=== PATIENT | male | born 1985 | race African-American/Black ===

== ENCOUNTER 2020-05-02 23:41 | Inpatient (IN) | payer BC ==
--- OUTSIDE RECORDS SUMMARY | 2020-05-02 23:43 | XMS REPORT | Summary of Care ---
:1985 Author Organization [facility] Address [address] [place] [address] Care Team Providers Name Role Phone Pcp, Does Not Have A Primary Care Provider Encounter Details Date Type Department Care Team Description 02/03/2020 Letter (Out) ACCESS [facility]ENTER Karina Lopez RN [address] [place] [phone] [place] [address] Allergies No Known Allergiesdocumented as of this encounter (statuses as of 02/03/2020) Medications Medication Sig Dispensed Refills Start Date End Date Status peg-electrolyte soln Take as directed 4000 mL 0 01/29/2020 Active 236-22.74-6.74 -5.86 before colonoscopy gram solution Hospital, Clinic, or Ordered Dose Route Frequency Start Date End D ate Status Other Facility Administered Medication vedolizumab (ENTYVIO) 300 mg IV Infusion PRN 02/01/2018 Active 300 mg in NaCl 0.9% (NS) 250 mL IV infusion documented as of this encounter (statuses as of 02/03/2020) Active Problems Problem Noted Date Crohn's disease of large intestine without complicatio n 12/23/2019 Overview: Added automatically from request for adriane arguello [id number] Fever of unknown origin 11/22/2017 Post procedure discomfort 10/12/2017 Crohn's disease of both small and large intestine with abscess 10/02/2017 Overview: Added automatically from request for adriane arguello [id number] Obesity (BMI 30-39.9) 11/01/2016 Iron deficiency anemia 05/03/2015 Sepsis 05/02/2015 Gluteal abscess 05/01/2015 Dehydration 02/27/2011 Crohn's disease 01/15/2011 documented as of this encounter (statuses as of 02/03/2020) Resolved Problems Problem Noted Date Resolved Date Regional enteritis of small intestine with large intestine 0 12/28/2010 01/15/2011 documented as of this encounter (statuses as of 02/03/2020) Immunizations Name Administration Dates Next Due HEP B, Adult Dosage 01/18/2018 Hep B, Adol or Pedi Dosage 09/20/2011, 12/05/2010 Influenza Virus Vaccine Quad .5 mL IM 6+ MO 05/13/2019 PPD (TB) 09/13/2011 Pneumococcal 13 Conjugate, PCV13 (Prevnar 13) 03/05/2018 TDAP 05/31/2018 Twinrix (hep a/hep b) 05/31/2018, 12/11/2017 documented as of this encounter Social History Tobacco Use Types Packs/Day Years Used Date Never Smoker Smokeless Tobacco: Never Used Alcohol Use Drinks/Week oz/Week Comments No Sex Assigned at Date Recorded Not on file COVID-19 Exposure Response Date Recorded In the last month, have you been in contact Unable to assess 01/23/2020 10:52 AM CDT with someone who was confirmed or suspected to have Coronavirus / COVID-19? documented as of this encounter Last Filed Vital Signs Not on filedocumented in this encounter Plan of Treatment Date Type Specialty Care Team Description 02/05/2020 Hospital Encounter Surgery Uriah Childress Crohn 's disease of K, DO large intestine [address] without complic ation [id number] [place], [place] [id number] 02/05/2020 Anesthesia Event Surgery Ilias, Nikkie, GASKET FORMER [address] [place] [address] 02/05/2020 Surgery Surgery Uriah Childress COLONOSCOPY K, DO [address] [id number] [place] [address] 03/04/2020 Nurse Visit Infusion Therapy Ismael Childress r K, DO [address] [id number] [place] [address] [phone] 2, [facility]te Adult Infusion Nurse 04/29/2020 Nurse Visit Infusion Therapy Ismael Childress, DO [address] [id number] [place], [place] [phone] 2, [facility] Adult Infusion Nurse Health Maintenance Due Date Last Done Comments VARICELLA VACCINES (1 of 2 - 2-dose childhood series) 1988 PNEUMOCOCCAL 0-64 YEARS COMBINED SERIES (2 of 3 - 04/30/2018 03/05/2018 PPSV23) INFLUENZA VACCINE (#1) 2020 05/13/2019 Depression Screening 05/13/2020 05/13/2019 DTaP,Tdap,and Td Vaccines (2 - Td) 05/31/2028 05/31/2018 documented as of this encounter Results Not on filedocumented in this encounter Insurance Payer Benefit Plan Subscriber ID Effective Dates Phone Address Type / Group [facility] [id number] 2017-Maribel [phone] [address] PPO/POS [place] - OUT OF t 87 [id number] [place] [address] documented as of this encounter Advance Directives Type Date Recorded 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
--- OUTSIDE RECORDS SUMMARY | 2020-05-02 23:44 | XMS REPORT | Summary of Care ---
:1985 Author Organization [facility] Address [address] [place] [address] Care Team Providers Name Role Phone Pcp, Does Not Have A Primary Care Provider Reason for Visit Auth/Cert Status Reason Specialty Diagnoses / Procedures Referred By C ontact Referred To Contact Surgery Diagnoses Crohn's disease of large intestine without complication [K50.10] Vl Preop Procedures AL COLONOSCOPY W/BIOPSY SINGLE/MULTIPLE COLONOSCOPY [address] [facility] [place] [address] Phone: Fax: Encounter Details Date Type Department Care Team Description 02/05/2020 [facility]est[facility] davian Tapia MD [address] [facility] [id number] [place] [address] [id number] Nikkie Mijares CRNA [address] [place] [address] [facility] [place] [phone] Allergies No Known Allergiesdocumented as of this encounter (statuses as of 02/05/2020) Medications Medication Sig Dispensed Refills Start Date End Date Status peg-electrolyte Take as directed 4000 mL 0 01/29/2020 Suspended soln before colonoscopy 236-22.74-6.74 -5.86 gram solution Additional Information documented as of this encounter (statuses as of 02/05/2020) Active Problems Problem Noted Date Crohn's disease of large intestine without complicatio n 12/23/2019 Overview: Added automatically from request for adriane arguello [id number] Fever of unknown origin 11/22/2017 Post procedure discomfort 10/12/2017 Crohn's disease of both small and large intestine with abscess 10/02/2017 Overview: Added automatically from request for adriane arguello [id number] Obesity (BMI 30-39.9) 11/01/2016 Iron deficiency anemia 05/03/2015 Sepsis 05/02/2015 Gluteal abscess 05/01/2015 Dehydration 02/27/2011 Crohn's disease 01/15/2011 documented as of this encounter (statuses as of 02/05/2020) Resolved Problems Problem Noted Date Resolved Date Regional enteritis of small intestine with large intestine 0 12/28/2010 01/15/2011 documented as of this encounter (statuses as of 02/05/2020) Immunizations Name Administration Dates Next Due HEP [...] last month, have you been in contact with No / Unsure 02/03/2020 1:39 PM CDT someone who was confirmed or suspected to have Coronavirus / COVID-19? documented as of this encounter Last Filed Vital Signs Not on filedocumented in this encounter OR Notes Anesthesia Postprocedure Evaluation - Marta Ruiz MD - 02/05/2020 10:30 AM CDT Patient: Jan Amaya Procedure Summary Date: 02/05/20 Room / Location: GI PROCEDURE [address] [place] [address] Anesthesia Start: 921 Anesthesia Stop: 1004 Procedure: COLONOSCOPY (N/A Rectum) Diagnosis: Crohn's disease of large intestine without complication (Crohn's disease of large intestine without complication [K50.10]) Surgeon: Uriah Childress DO Responsible Provider: Marta Ruiz MD Anesthesia Type: TIVA ASA Status: 3 Anesthesia Type: TIVA Last vitals BP 113/62 (02/05/20 1025) Temp 35.8 C (96.4 F) (02/05/20 1005) Pulse 67 (02/05/20 1025) Resp 16 (02/05/20 1025) SpO2 98 % (02/05/20 1025) There were no known complications for this encounter. Anesthesia Post Evaluation Patient location during evaluation: PACU Patient participation: complete - patient participated Level of consciousness: awake and alert Pain management: satisfactory to patient Airway patency: patent Cardiovascular status: acceptable and blood pressure returned to baseline Respiratory status: acceptable Hydration status: acceptable Anesthesia Preprocedure Evaluation - Marta Ruiz MD - 12/25/2019 12:50 PM CDT Name/ MRN / Age / Gender: Jan Amaya, [id number] 34 year old male BMI: Estimated body mass index is 41.36 kg/m as calculated from the following: Height as of this encounter: 1.727 m (5' 8"). Weight as of this encounter: 123.4 kg (272 lb). Allergies: Patient has no known allergies. Last Vitals: BP Readings from Last 1 Encounters: 02/05/20 130/84 Pulse Readings from Last 1 Encounters: 02/05/20 74 SpO2 Readings from Last 1 Encounters: 02/05/20 95% Date of Surgery: 02/05/2020 Surgeon: Uriah Childress DO Procedure: COLONOSCOPY (N/A Rectum) OR Location: [facility] Anesthesia Preop Eval (physical exam) Anesthesia Preop: Chart Review and [id number] NPO Status Verified Clear Liquids: > 2 Hours Solid Food/Non-Clear Liquids: > 8 Hours PONV Risk Factors: non-smoker Anesthesia History Comments: Dislocated jaw with last 2 intubations (+) Hx of anesthetic complications Previous Anesthetics/Airways Additional Comments: TIVA 10/03 Cardiovascular Negative Cardiac ROS METS: 5-6 (-) Hypertension (-) Valvular problems/murmurs (-) Dysrhythmias Pulmonary Negative Pulmonary ROS (-) Asthma (-) Tobacco use (-) Smokeless tobacco use (-) Allergic rhinitis (-) COVID-19 within the past 6 weeks (-) Recent bronchitis or URI Neuro/Musculoskeletal (+) Obesity and morbid obesity GI/Hepatic Comments: Crohn's disease of both small and large intestine with abscess Post procedure discomfort (+) h/o Crohn's disease, IBD, ulcerative colitis, several perianal fistulae (+) Seen 08/20/2017 for gluteal cleft abscess with drainage CC: Crohn's disease (+) Bowel prep (-) GERD Hematology Comments: 10/02/2017 HGB: 11.1 (L) HCT: 35.5 (L) PLT: 455 (H) FERRITIN: 13.7 (L) VIT D 25OH: 19 (L) CRP: 9.3 (H) (+) Anemia and iron deficiency Renal Negative Renal ROS Skin Negative Skin ROS (+) Current IV access and 20g Endo/Other Negative Endo/Other ROS Other (-) Tobacco use (-) Smokeless tobacco use (+) Drug use (smokes marijuana for IBD) 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 Hold on DOS. Anticoagulant Therapy: Defer to surgeons Phentermine: [facility] anesthesiologist MAC Cases: Continue taking ASHLEY inhibitors and ARBs ASA Classification ASA: 3 Current Medications: Current Facility-Administered Medications for the 02/05/20 encounter (Hospital Encounter) Medication Dose Route Frequency Provider Last Rate Last Dose vedolizumab (ENTYVIO) 300 mg in NaCl 0.9% (NS) 250 mL IV infusion 300 mg IV Infusion PRN Uriah Childress DO No outpatient medications have been marked as taking for the 02/05/20 encounter (Hospital Encounter). Previous Surgeries: Past Surgical History: Procedure Laterality Date COLONOSCOPY N/A 10/12/2017 Surgeon: Uriah Childress DO; Location: [facility] Location EXAM UNDER ANESTHESIA 02/28/2011 Surgeon:MOISÉS HILL; Location:[facility] LOC[facility] EXAM UNDER ANESTHESIA 05/05/2011 Surgeon:MOISÉS HILL; Location:[facility] EXAM UNDER ANESTHESIA N/A 06/08/2015 Surgeon: Moisés Hill MD; Location: [facility] LOC[facility] EXAMINATION UNDER ANESTHESIA 12/06/2010 Surgeon:MOISÉS HILL; Location:[facility] LOC[facility] EXAMINATION UNDER ANESTHESIA 02/19/2012 Surgeon: Moisés Hill MD; Location: [facility] LOC[facility] EXAMINATION UNDER ANESTHESIA 11/26/2012 Surgeon: Moisés Hill MD; Location: [facility] LOC[facility] EXAMINATION UNDER ANESTHESIA 04/02/2013 Surgeon: Moisés Hill MD; Location: [facility] LOC[facility] EXAMINATION UNDER ANESTHESIA N/A 06/09/2014 Surgeon: Moisés Hill MD; Location: [facility] LOC[facility] FISTULOTOMY 12/06/2010 Surgeon:MOISÉS HILL; Location:[facility] LOC[facility] FISTULOTOMY 02/19/2012 Surgeon: Moisés Hill MD; Location: [facility] LOCATION FISTULOTOMY 11/26/2012 Surgeon: Moisés Hill MD; Location: [facility] LOCATION FISTULOTOMY 04/02/2013 Surgeon: Moisés Hill MD; Location: [facility] LOC[facility] FISTULOTOMY N/A 06/09/2014 Surgeon: Moisés Hill MD; Location: [facility] LOCATION INCISION AND DRAINAGE OF ABSCESS 12/06/2010 Surgeon:MOISÉS HILL; Location:[facility] LOCATION INCISION AND DRAINAGE OF ABSCESS 05/05/2011 Surgeon:MOISÉS HILL; Location:[facility] LOCATION INCISION AND DRAINAGE OF ABSCESS 02/19/2012 INCISION AND DRAINAGE OF ABSCESS 02/19/2012 Surgeon: Moisés Hill MD; Location: [facility] LOCATION PROCTOSCOPY 12/06/2010 Surgeon:MOISÉS HILL; Location:[facility] LOCATION PROCTOSCOPY 02/28/2011 Surgeon:MOISÉS HILL; Location:[facility] LOCATION PROCTOSCOPY 05/05/2011 Surgeon:MOISÉS HILL; Location:[facility] LOCATION PROCTOSCOPY 02/19/2012 Surgeon: Moisés Hill MD; Location: [facility] LOCATION PROCTOSCOPY 11/26/2012 Surgeon: Moisés Hill MD; Location: [facility] LOCATION PROCTOSCOPY 04/02/2013 Surgeon: Moisés Hill MD; Location: [facility] LOCATION PROCTOSCOPY N/A 06/08/2015 Surgeon: Moisés Hill MD; Location: [facility] LOCATION REPAIR ANAL FISTULA,RECT ADV FLAP at age 8 WOUND DEBRIDEMENT 05/05/2011 Surgeon:MOISÉS HILL; Location:[facility] LOCATION Anesthesia Physical Exam General no apparent distress and alert and oriented x 3 Neuro/Psych neurological Nonfocal Dental no notable dental hx Abdominal GI exam normal (+) obesity, abdomen soft and benign Airway Mallampati score:III TM distance:< 5 cm Neck ROM: full Mouth opening:normal (+) Normal facies Extremity Normal extremity Pulmonary pulmonary exam normal and bilateral clear to auscultation Other Cardiovascular cardiovascular exam normalRhythm:Regular Rate: Normal Anesthesia Plan ASA Status: 3 Plan discussed during pre-op evaluation: TIVA Anesthetic plan on DOS: TIVA Plan to include: IV induction Anesthesia plan discussed with: 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 Post-Operative Analgesia: routine analgesia & antiemetics Recovery Plan: PACU Additional comments: documented in this encounter Miscellaneous Notes Addendum Note - Odessa Merchant CRNA - 02/05/2020 10:43 AM CDT Addendum created 02/05/20 1043 by Odessa Merchant CRNA Flowsheet accepted, Intraprocedure Flowsheets edited documented in this encounter Plan of Treatment Date Type Specialty Care Team Description 02/24/2020 Office Visit Gastroenterology Ismael Childress, DO [address] [place], [place] [address] 03/04/2020 Nurse Visit Infusion Therapy Ismael Childress, DO [address] [id number] [place] [address] [phone] 2Ute Adult Infusion Nurse 04/29/2020 Nurse Visit Infusion Therapy Ismael Childress, DO [address] [id number] [place], [place] [phone] 2, [facility] Adult Infusion Nurse Health Maintenance Due Date Last Done Comments VARICELLA VACCINES (1 of 2 - 2-dose childhood series) 1988 PNEUMOCOCCAL 0-64 YEARS COMBINED SERIES (2 of 3 - 04/30/2018 03/05/2018 PPSV23) INFLUENZA VACCINE (#1) 2020 05/13/2019 Depression Screening 02/04/2021 02/05/2020 DTaP,Tdap,and Td Vaccines (2 - Td) 05/31/2028 05/31/2018 documented as of this encounter Results Not on filedocumented in this encounter Administered Medications Medication Order MAR Action Action Date Dose Rate Site lactated ringers IV infusion New Bag 02/05/2020 9:01 AM CDT IV Infusion, CONTINUOUS PRN, Starting Elsa 02/05/20 at 0901, Until Elsa 02/05/20 at 1005, Routine, Intra-op midazolam (VERSED) injection Given 02/05/2020 9:09 AM CDT 2 mg ONCE INTRA PROCEDURE, Starting Elsa 02/05/20 at 0909, Until Elsa 02/05/20 at 1005, Routine, Intra-op propofoL IV infusion Rate Change 02/05/2020 9:43 125 mcg/kg/min 75 mL/hr CONTINUOUS PRN, Starting Elsa AM CDT 02/05/20 at 0926, Until Elsa 02/05/20 at 1005, Routine, Intra-op Rate Change 02/05/2020 9:34 AM CDT 150 mcg/kg/min 90 mL/hr New Bag 02/05/2020 9:26 AM CDT 200 mcg/kg/min 120 mL/hr propofoL IV infusion Given 02/05/2020 9:28 AM CDT 50 mg ONCE INTRA PROCEDURE, Starting Elsa 02/05/20 at 0926, Until Elsa 02/05/20 at 1005, Routine, Intra-op Given 02/05/2020 9:26 AM CDT 50 mg documented in this encounter Insurance Payer Benefit Plan Subscriber ID Effective Dates Phone Address Type / Group [id number] 2017-Maribel [phone] [address] PPO/POS [place] - OUT OF t 87 [id number] [place] [address] documented as of this encounter Advance Directives Type Date Recorded 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
--- OUTSIDE RECORDS SUMMARY | 2020-05-02 23:44 | XMS REPORT | Summary of Care ---
:1985 Author Organization [facility] Address [address] [place] [address] Care Team Providers Name Role Phone Pcp, Does Not Have A Primary Care Provider Reason for Referral (Routine) Status Reason Specialty Diagnoses / Referred By Referred To Procedures Contact Contact New Request Infusion Therapy Diagnoses Crohn's disease of large intestine without complication [place], Procedures CONSULT/REFERRAL AMB INFUSION THERAPY Preferred location: [facility] Uriah Rooney DO [address] [place] [address] [id number] [place] [address] Reason for Visit Reason Comments Orders Encounter Details Date Type Department Care Team Description 02/16/2020 Telephone [facility] GASTR[facility] Uriah Diaz DO Orders -[address] [id number] [address] [place] [address] [place], [place] [address] Allergies No Known Allergiesdocumented as of this encounter (statuses as of 02/16/2020) Medications Medication Sig Dispensed Refills Start Date [...] as of this encounter (statuses as of 02/16/2020) Active Problems Problem Noted Date Crohn's disease of large intestine without complicatio n 12/23/2019 Overview: Added automatically from request for adriane arguello [id number] Fever of unknown origin 11/22/2017 Post procedure discomfort 10/12/2017 Crohn's disease of both small and large intestine with abscess 10/02/2017 Overview: Added automatically from request for adriane arguello [id number] Obesity (BMI 30-39.9) 11/01/2016 Iron deficiency anemia 05/03/2015 Sepsis 05/02/2015 Gluteal abscess 05/01/2015 Dehydration 02/27/2011 Crohn's disease 01/15/2011 documented as of this encounter (statuses as of 02/16/2020) Resolved Problems Problem Noted Date Resolved Date Regional enteritis of small intestine with large intestine 0 12/28/2010 01/15/2011 documented as of this encounter (statuses as of 02/16/2020) Immunizations Name Administration Dates Next Due HEP [...] Signs Not on filedocumented in this encounter Miscellaneous Notes Telephone Encounter - Milady Romero LVN - 02/16/2020 2:46 PM CDTAssessment and Plan: 11/11/2019 1. Crohn's colitis, with fistula (primary encounter diagnosis) 2. Immunosupression 3. NICOLE - He has h/o Crohn's disease with perianal disease dxd 2008 on colonoscopy. He has lost response to Remicade, Humira, and Cimzia. He was recently hospitalized for serum sickness like reaction after given a dose of Remicade. He is doing well on Entyvio - Continue Entyvio q 8 weeks - Check CBC, CMP at infusion in 2 days - Schedule colonoscopy, Tier 3, with Golytely as prep. Will call patient to schedule and have nurse place case request. Will need to complete consent day of procedure. documented in this encounter Plan of Treatment Date Type Specialty Care Team Description 02/24/2020 Office Visit Gastroenterology Ismael Childress, DO [address] [place], [place] [address] [phone] 03/04/2020 Nurse Visit Infusion Therapy Ismael Childress DO [address] [id number] [place], [place] [phone] 2Ute Adult Infusion Nurse 04/29/2020 Nurse Visit Infusion Therapy Ismael Childress, DO [address] [id number] [place], [place] [phone] 2, [facility] Adult Infusion Nurse Health Maintenance Due Date Last Done Comments VARICELLA VACCINES (1 of 2 - 2-dose childhood series) 1988 PNEUMOCOCCAL 0-64 YEARS COMBINED SERIES (2 of 3 - 04/30/2018 03/05/2018 PPSV23) INFLUENZA VACCINE (#1) 2020 05/13/2019 Depression Screening 02/04/2021 02/05/2020 DTaP,Tdap,and Td Vaccines (2 - Td) 05/31/2028 05/31/2018 documented as of this encounter Results Not on filedocumented in this encounter Visit Diagnoses Diagnosis Crohn's disease of large intestine witho ut complication - Primary Regional enteritis of large intestine documented in this encounter Insurance Payer Benefit Plan Subscriber ID Effective Dates Phone Address Type / Group [facility] [id number] 2017-Maribel [phone] [address] PPO/POS [place] - OUT OF t 87 [id number] [place] [address] documented as of this encounter Advance Directives Type Date Recorded 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
--- OUTSIDE RECORDS SUMMARY | 2020-05-02 23:44 | XMS REPORT | Summary of Care ---
:1985 Author Organization [facility] Address [address] [place] [address] Care Team Providers Name Role Phone Pcp, Does Not Have A Primary Care Provider Reason for Visit Auth/Cert Status Reason Specialty Diagnoses / Procedures Referred By C ontact Referred To Contact Surgery Diagnoses Crohn's disease of large intestine without complication [K50.10] Vl Preop Procedures [place] COLONOSCOPY W/BIOPSY SINGLE/MULTIPLE COLONOSCOPY [address] [facility] [place] [address] Phone: Fax: Encounter Details Date Type Department Care Team Description 02/05/2020 Hospital Encounter [facility] Uriah Childress Crohn's disease of [facility] Post K, DO large intestine Anesthesia Care [address] [place] [address] without comp lication Unit [id number] [id number] [place], [place] [phone] Allergies No Known Allergiesdocumented as of this encounter (statuses as of 02/05/2020) Medications No known medicationsdocumented as of this encounter (statuses as of 02/05/2020) Active Problems Problem Noted Date Crohn's disease of large intestine without complicatio n 12/23/2019 Overview: Added automatically from request for adriane arguello [id number] Fever of unknown origin 11/22/2017 Post procedure discomfort 10/12/2017 Crohn's disease of both small and large intestine with abscess 10/02/2017 Overview: Added automatically from request for adriane arguello [id number] Obesity (BMI 30-39.9) 11/01/2016 Iron deficiency anemia [...] of this encounter Last Filed Vital Signs Vital Sign Reading Time Taken Comments Blood Pressure 121/82 02/05/2020 10:30 AM CDT Pulse 67 02/05/2020 10:30 AM CDT Temperature 35.8 C (96.4 F) 02/05/2020 10:05 AM CDT Respiratory Rate 16 02/05/2020 10:30 AM CDT Oxygen Saturation 98% 02/05/2020 10:30 AM CDT Inhaled Oxygen Concentration - - Weight 123.4 kg (272 lb) 02/05/2020 8:23 AM CDT Height 172.7 cm (5' 8") 02/05/2020 8:23 AM CDT Body Mass Index 41.36 02/05/2020 8:23 AM CDT documented in this encounter Discharge Instructions Susanna Abbasi RN - 02/05/2020 General Discharge Instructions Procedure: Colonoscopy The medication you were given for the procedure may make you dizzy or sleepy. Do not drive, operate machinery or walk for long distances in the heat for at least 12 hours. Many patients feel very tired following these procedures and need to rest for several hours. The procedure may cause mild discomfort in the abdominal area, but the pain should disappear within several hours. Notify your physician if you have pain or tenderness for more than six hours or ifyou notice an increase in abdominal size. Advance your diet: You may resume a normal diet but first start with a light meal that is not greasy or fatty. If you are passing gas and this light meal does not bother your stomach you may continue with a normal diet for the next meal. Resume your home medications. The arm vein where medication was given may be tender. Apply a warm compress. If the pain persists for more than 12 hours, call your doctor. You will probably belch or pass gas during the first few hours after the exam. Light exercise like walking may help relieve bloating or gas pains. Avoid extreme heat when you exercise. If you had a polypectomy or a biopsy, you may notice a small amount of red blood coming from the rectum. You may also have a small amount of blood in your first bowel movement. If bleeding increases, call your doctor. If you had a polypectomy, do not take non-steroidal antiinflammatory medications containing Ibuprofen (such as Nuprin, Motrin, Advil) or medications with Aspirin (such as Bufferin) for 7 days, unless your doctor tells you otherwise. For minor pains, you may use medications that do not contain aspirin or ibuprofen (such as Tylenol or Datril). If you experience: Severe abdominal pain, excessive rectal bleeding, increase in abdominal size, persistent nausea or vomiting or a general tired feeling that does not improve please call Dr. Thomas [phone] Special Instructions: Although these symptoms may not be related to your procedure, call your doctor immediately if you- Become short of breath Get dizzy Have a fever Experience chest pain Have rapid or irregular heart rate If you had biopsies your physician will call you with the results in approximately one week and advise you of when to follow-up. Contact Information Gastroenterology Department [phone] After Hours (Non-Urgent Concerns): [facility] Access Line [phone] and ask to speak to the physician covering High Fiber Diet (25-30 grams/ day) FRUIT AMOUNT FIBER (gms) VEGETABLES AMOUNT FIBER (gms) Apple with skin 1 medium 5.00 Avocado 1 medium 11.84 Apricot 3 medium 0.98 Beets, cooked 1 cup 2.85 Apricots, dried 5 pieces 2.89 Beet greens 1 cup 4.20 Banana 1 medium 3.92 Bok Roly, cooked 1 cup 2.76 Blueberries 1 cup 4.18 Broccoli, cooked 1 cup 4.5 Cantaloupe, cubes 1 cup 1.28 Brussel Sprouts 1 cup 2.84 Figs, dried 2 medium 3.74 Cabbage, cooked 1 cup 4.20 Grapefruit medium 6.12 Carrot 1 medium 2.00 [place], navel 1 medium 3.40 Carrots, cooked 1 cup 5.22 Isabella 1 medium 2.00 Cauliflower, cooked 1 cup 3.43 Peaches, dried 3 pieces 3.18 Matheus Slaw 1 cup 4.00 Pear 1 medium 5.08 [place], sweet 1 cup 4.66 [place] 1 medium 1.00 Green beans 1cup 3.95 Raisins 1.5 oz box 1.60 Celery 1 stalk 1.02 Raspberries 1 cup 8.34 Kale, cooked 1 cup 7.20 Strawberries 1 cup 3.98 Onions, raw 1 cup 2.88 Peas, cooked 1 cup 8.84 CEREAL, GRAINS, PASTA AMOUNT FIBER (gms) Peppers, cooked 1 cup 2.62 Bran Cereal 1 cup 19.94 Pop corn, air popped 3 cups 3.60 Bread, whole wheat 1 slice 2.00 Potato, baked w/ skin 1 medium 4.80 Oats, rolled dry 1 cup 12.00 Spinach, cooked 1 cup 4.32 Pasta, whole wheat 1 cup 6.34 Summer squash 1 cup 2.52 Rice, dry brown 1 cup 7.98 Sweet Potato, cooked 1 cup 5.94 [place] Chard, cooked 1 cup 3.68 BEANS, NUTS, SEEDS AMOUNT FIBER (gms) Tomato 1 medium 1.00 Almonds 1 oz 4.22 Winter Squash 1 cup 5.74 Black Beans, cooked 1 cup 14.92 Zucchini, cooked 1 cup 2.63 Cashews 1 oz 1.00 Flax Seeds 3 tbs 6.97 Garbanzo beans, cooked 1 cup 5.80 Kidney beans, cooked 1 cup 13.33 Lentils, red cooked 1 cup 15.64 Nolan beans, cooked 1 cup 13.16 Peanuts 1 oz 2.30 Pistachio nuts 1 oz 3.10 Pumpkin seeds cup 4.12 Soybeans, cooked 1 cup 7.62 Sharp seeds cup 3.00 Walnuts 1 oz 3.08 TOBACCO AVOIDANCE Exposure to tobacco either from smoking or from second hand (environmental)smoke or smokeless tobacco (snuff) is damaging to your health. This information is to encourage everyone to avoid tobacco exposure. It is recommended that you: If you smoke or use smokeless tobacco, we encourage you to quit. If you have already quit smoking, continue your good work! If you do not smoke or use smokeless tobacco, do not start. Avoid secondhand smoke. Additional Resources: You may want to contact these organizations for further information on smoking and how to quit- [place] Lung Association - http://www.lungusa.org/stop-smoking/ [place] Cancer Society - http://www.cancer.org/Healthy/StayAwayfromTobacco/index Citizen [place] Heart Association - http://www.heart.org/HEARTORG/GettingHealthy/QuitSmoking/Quit-Smoking _[facility]_001085_SubHomePage.jsp documented in this encounter H&P Notes Uriah Childress DO - 02/05/2020 9:07 AM CDT Endoscopy H & P Age: [age] year old Sex: male ASA Class: II Indication: crohn's disease Past Medical History: Diagnosis Date Anemia Crohn's disease Family history of Colon Cancer/Polyps: no Current Facility-Administered Medications Medication Dose Route Frequency Last Rate Last Dose simethicone (GAS RELIEF (SIMETHICONE)) 40 mg/0.6 mL drops PRN 80 mg at 02/05/20 0829 No Known Allergies Social History Socioeconomic History Marital status: Spouse name: Not on file Number of children: Not on file Years of education: Not on file Highest education level: Not on file Occupational History 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 Social Needs Financial resource strain: Not on file Food insecurity Worry: Not on file Inability: Not on file Transportation needs Medical: Not on file Non-medical: Not on file Tobacco Use Smoking status: Never Smoker Smokeless tobacco: Never Used Substance and Sexual Activity Alcohol use: No Drug use: No Sexual activity: Not on file Lifestyle Physical activity Days per week: Not on file Minutes per session: Not on file Stress: Not on file Relationships Social connections Talks on phone: Not on file Gets together: Not on file Attends mosque service: Not on file Active member of club or organization: Not on file Attends meetings of clubs or organizations: Not on file Relationship status: Not on file Intimate partner violence Fear of current or ex partner: Not on file Emotionally abused: Not on file Physically abused: Not on file Forced sexual activity: Not on file Other Topics Concern Not on file Social History Narrative Not on file Mental Status: alert, oriented x3 Chest: clear to auscultation Cardiovascular: regular rate and rythmn Abdomen: bowel sounds present Spleen Tip: non-palpable Hepatomegaly: no Mass: not present Tenderness: no Impression and Plan: Crohn's disease- need to assess activity colonoscopy Education provided to the patient and family about the procedure. COMPLICATIONS/SECONDARY DIAGNOSIS None documented in this encounter Miscellaneous Notes Nursing Note - Candie Alva RN - 02/03/2020 1:39 PM CDTColonoscopy w/Anesthesia scheduled at [facility] Endoscopy on 02/05/[address] Childress. Patient has instructions and Golytely. Call back phone number provided to patient. Patient verbalized understanding ofinstructions. Discussed with patient they will need a responsible adult to provide transportation on day of procedure. Patient also informed that they will be contacted day before their procedure with arrival time. documented in this encounter Plan of Treatment Date Type Specialty Care Team Description 02/24/2020 Office Visit Gastroenterology Ismael Childress DO [address] [place], [place] [address] [phone] 03/04/2020 Nurse Visit Infusion Therapy Ismael Childress, DO [address] [facility] [id number] [place] [address] [phone] 2, [facility] Adult Infusion Nurse 04/29/2020 Nurse Visit Infusion Therapy Ismael Childress, DO [id number] [place], [place] [id number] 2, [place] Adult Infusion Nurse Name Type Priority Associated Diagnoses Date/Ti me SURGICAL PATHOLOGY EXAM LAB STAT 01/17 9:39 AM CDT Name Type Priority Associated Diagnoses Order S chedule POCT Test LAB Routine ONCE for 1 Occurrences starting 2019 until 02/05/2020 SURGICAL PATHOLOGY EXAM LAB Routine Rele ase Upon Ordering for 1 Occurrences s tarting 02/05/2020 Health Maintenance Due Date Last Done Comments [...] of large intestine documented in this encounter Administered Medications Medication Order MAR Action Action Date Dose Rate Site simethicone (GAS RELIEF Given 02/05/2020 8:29 AM CDT 80 mg (SIMETHICONE)) 40 mg/0.6 mL drops PRN, Starting Elsa 02/05/20 at 0829, Until Discontinued, Routine, Intra-op Medication Order MAR Action Action Date Dose Rate Site lactated ringers IV infusion New Bag 02/05/2020 8:20 AM CDT 1,000 mL 20 mL/hr 1,000 mL at 20 mL/hr, 1,000 mL, IV Infusion, ONCE, 1 dose, Elsa 02/05/20 at 0830, Routine, DSU Pre-op documented in this encounter Insurance Payer Benefit Plan Subscriber ID Effective Dates Phone Address Type / Group [id number] 2017-Maribel [phone] [address] PPO/POS [place] - OUT OF t 87 [id number] [place] [address] documented as of this encounter Advance Directives Type Date Recorded 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
--- OUTSIDE RECORDS SUMMARY | 2020-05-02 23:44 | XMS REPORT | Summary of Care ---
:1985 Author Organization [facility] - Health Address [address] [place] [address] Care Team Providers Name Role Phone Pcp, Does Not Have A Primary Care Provider Encounter Details Date Type Department Care Team Description 02/05/2020 Orders Only [facility] Doctor Unassigned, No [address] [facility] [place] [address] [address] [place] [address] Allergies No Known Allergiesdocumented as of this [...] Added automatically from request for adriane arguello [id number] Fever of unknown origin 11/22/2017 Post procedure discomfort 10/12/2017 Crohn's disease of both small and large intestine with abscess 10/02/2017 Overview: Added automatically from request for adriane arguello [id number] Obesity (BMI 30-39.9) 11/01/2016 Iron deficiency anemia [...] Treatment Date Type Specialty Care Team Description 03/04/2020 Nurse Visit Infusion Therapy Ismael Childress, DO [id number] [place], [place] [address] [facility] Adult Infusion Nurse 04/29/2020 Nurse Visit Infusion Therapy Ismael Childress, DO [id number] [place], [place] [address] 2[facility] Adult Infusion Nurse Health Maintenance Due Date Last Done Comments VARICELLA VACCINES (1 of 2 - 2-dose childhood series) 1988 PNEUMOCOCCAL 0-64 YEARS COMBINED SERIES (2 of 3 - 04/30/2018 03/05/2018 PPSV23) INFLUENZA VACCINE (#1) 2020 05/13/2019 Depression Screening 05/13/2020 05/13/2019 DTaP,Tdap,and Td Vaccines (2 - Td) 05/31/2028 05/31/2018 documented as of this encounter Procedures Procedure Name Priority Date/Time Associated Diagnosis Comme nts ASSIGNMENT OF BENEFITS Routine 02/05/2020 7:53 AM CDT documented in this encounter Results Not on filedocumented in this encounter Insurance Payer Benefit Plan Subscriber ID Effective Dates Phone Address Type / Group [facility] [id number] 2017-Maribel [phone] [address] PPO/POS [place] - OUT OF t 87 [id number] [place] [address] documented as of this encounter Advance Directives Type Date Recorded 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
--- OUTSIDE RECORDS SUMMARY | 2020-05-02 23:44 | XMS REPORT | Summary of Care ---
:1985 Author Organization [facility] Address [address] [place] [address] Care Team Providers Name Role Phone Pcp, Does Not Have A Primary Care Provider Reason for Visit Reason Comments LAB WORK Encounter Details Date Type Department Care Team Description 02/24/2020 Shoe Salesperson Visit [facility] Ricardo Childress, DO [address] [facility] [id number] [place], [place] [address] Crohn's disease of PHLEBOTOMY/LAB Vls-Lab large intestine [address] [facility] without co mplication [facility] [address] [place] [phone] Allergies No Known Allergiesdocumented as of this encounter (statuses as of 02/24/2020) Medications Hospital, Clinic, or Ordered Dose Route Frequency Start Date End D ate Status Other Facility Administered Medication vedolizumab (ENTYVIO) 300 mg IV Infusion PRN 02/01/2018 Active 300 mg in NaCl 0.9% (NS) 250 mL IV infusion documented as of this encounter (statuses as of 02/24/2020) Active Problems Problem Noted Date Crohn's disease of large intestine without complicatio n 12/23/2019 Overview: Added automatically from request for adriane arguello [id number] Fever of unknown origin 11/22/2017 Post procedure discomfort 10/12/2017 Crohn's disease of both small and large intestine with abscess 10/02/2017 Overview: Added automatically from request for adriane arguello [id number] Obesity (BMI 30-39.9) 11/01/2016 Iron deficiency anemia 05/03/2015 Sepsis 05/02/2015 Gluteal abscess 05/01/2015 Dehydration 02/27/2011 Crohn's disease 01/15/2011 documented as of this encounter (statuses as of 02/24/2020) Resolved Problems Problem Noted Date Resolved Date Regional enteritis of small intestine with large intestine 0 12/28/2010 01/15/2011 documented as of this encounter (statuses as of 02/24/2020) Immunizations Name Administration Dates Next Due HEP [...] been in contact with No / Unsure 02/24/2020 1:15 PM CDT someone who was confirmed or suspected to have Coronavirus / COVID-19? documented as of this encounter Last Filed Vital Signs Not on filedocumented in this encounter Nursing Notes Kaylen Early - 02/24/2020 3:00 PM CDT Venipuncture collection performed by clean technique on the left hand. Total of 1 attempts were made. Slight pressure and a bandage/dressing were applied to the site(s). The patient experienced no complications. The following specimens were processed according to instructions and sent to [facility] laboratories per lab order on 02/24/2020: LT BLUE SST 1 RED LAV 1 PPT DK GREEN (LiHep) DK GREEN (SodH) [place] DK BLUE (K2) DK BLUE (S) ACD Blood Culture NIPT/NTD documented in this encounter Plan of Treatment Date Type Specialty Care Team Description 03/04/2020 Nurse Visit Infusion Therapy [place], Gurinde r K, DO [id number] [place], [place] [address] 2[place] Adult Infusion Nurse 04/29/2020 Nurse Visit Infusion Therapy Ismael Childress, DO [id number] [place], [place] [phone] 2[place] Adult Infusion Nurse 08/24/2020 Office Visit Gastroenterology Ismael Childress, DO [address] [place], [place] [address] Health Maintenance Due Date Last Done Comments [...] disease of large intestine witho ut complication Regional enteritis of large intestine documented in this encounter Insurance Payer Benefit Plan Subscriber ID Effective Dates Phone Address Type / Group [facility] [id number] 2017-Maribel [phone] [address] PPO/POS [place] - OUT OF t 87 [id number] [place] [address] documented as of this encounter Advance Directives Type Date Recorded Patient Floor Inspector Explanati on Advance Directives and Living 12/02/2012 3:24 PM Will Power of Campus Recruiting Internship 12/02/2012 3:24 PM
--- OUTSIDE RECORDS SUMMARY | 2020-05-02 23:45 | XMS REPORT | Summary of Care ---
:1985 Author Organization [facility] Address [address] [place] [address] Care Team Providers Name Role Phone Pcp, Does Not Have A Primary Care Provider Reason for Visit Reason Comments Follow-up 2 wk post op Encounter Details Date Type Department Care Team Description 02/24/2020 Office Visit [facility] Uriah Childress Crohn's dis ease of large intestine without complication (Primary Dx); GASTROENTEROLOGY -[facility] K, DO Immunosuppression; [address] Iron deficiency anemia, unsp ecified iron deficiency anemia type [address] [facility] [address] [place] [address] [phone] Allergies No Known Allergiesdocumented as of this encounter (statuses as of 03/22/2020) Medications Medication Sig Dispensed Refills Start Date End Date Status peg-electrolyte Take as directed 4000 mL 0 01/29/20202019 Discontinued soln before [id number] colonoscopy -5.86 gram solution Hospital, Clinic, or Ordered Dose Route Frequency Start Date End D ate Status Other Facility Administered Medication vedolizumab (ENTYVIO) 300 mg IV Infusion PRN 02/01/2018 Active 300 mg in NaCl 0.9% (NS) 250 mL IV infusion documented as of this encounter (statuses as of 03/22/2020) Active Problems Problem Noted Date Crohn's disease of large intestine without complicatio n 12/23/2019 Overview: Added automatically from request for adriane arguello [id number] Fever of unknown origin 11/22/2017 Post procedure discomfort 10/12/2017 Crohn's disease of both small and large intestine with abscess 10/02/2017 Overview: Added automatically from request for adriane arguello [id number] Obesity (BMI 30-39.9) 11/01/2016 Iron deficiency anemia 05/03/2015 Sepsis 05/02/2015 Gluteal abscess 05/01/2015 Dehydration 02/27/2011 Crohn's disease 01/15/2011 documented as of this encounter (statuses as of 03/22/2020) Resolved Problems Problem Noted Date Resolved Date Regional enteritis of small intestine with large intestine 0 12/28/2010 01/15/2011 documented as of this encounter (statuses as of 03/22/2020) Immunizations Name Administration Dates Next Due HEP [...] been in contact with No / Unsure 03/04/2020 1:56 PM CDT someone who was confirmed or suspected to have Coronavirus / COVID-19? documented as of this encounter Last Filed Vital Signs Vital Sign Reading Time Taken Comments Blood Pressure 116/86 02/24/2020 1:18 PM CDT Pulse 76 02/24/2020 1:18 PM CDT Temperature 36.2 C (97.2 F) 02/24/2020 1:18 PM CDT Respiratory Rate - - Oxygen Saturation 99% 02/24/2020 1:18 PM CDT Inhaled Oxygen Concentration - - Weight 128.8 kg (284 lb) 02/24/2020 1:18 PM CDT Height 172.7 cm (5' 8") 02/24/2020 1:18 PM CDT Body Mass Index 43.18 02/24/2020 1:18 PM CDT documented in this encounter Progress Notes Elizabeth Arriaza PA - 02/24/2020 1:30 PM CDT GI Clinic Note Date: 02/24/2020 13:59 Chief Complaint: Crohn's disease F/U History of Present Illness: Jan Amaya is a 32 year old male with PHx of Crohn's disease dxd in 2008 on colonoscopy presents in the clinic for Crohn's disease F/U. Initially, he was treated with prednisone followed by Asacol for 1 year. In about 2009, he was told to have perianal disease with fistula, placed on flagyl and levaquin, symptoms improved. He was given iron infusions in 2010. He was started on Remicade standard dose in 2010 but had infusion reactions subsequently and also drug was not working later on.He then switched to Humira- because there was inadequate response close to time of infusion along with 6MP, took that till 2013. He was then switched to Cimzia in about 2013, took it intermittently forabout a year, then stopped because it wasn't working- self decision. He stopped 6MP for unknown reason. He has had multiple setons placed, I&D done for his perianal fistulas. He also had a fistulotomy done once. He was off all treatments for CD since 2013 and was using cannabis for abd pains and to keep up his appetite.He received first dose of Remicade 11/08/17 and 7- 10 days later had severe flu like illness and was admitted to [facility] 11/22/17. Stool studies showed elevated calprotectin but no evidence of infection. He was recommended to start Entyvio last visit 12/11/17 but order was not placed until 01/23/18. He has been on Entyvio since 01/2018 and is doing well. He feels a bit fatigued a week prior to his infusion. BMs 2-4x/day, formed, no blood. He denies abdominal pain. He has gained 13 lbs since last visit. He has also received iron infusion and tolerated well. Follow-Up 02/24/2020: Recent colonoscopy 02/05/2020 showed active Crohn's disease in colon except for rectum. He reports doing well on Entyvio q 8 weeks. Offered to do PPSV23 but patient defers because does not want himto. Past Medical History: Past Medical History: Diagnosis Date Anemia Crohn's disease Past Surgical History: He has a past surgical history that includes repair anal fistula,rect adv flap; incision and drainage of abscess (12/06/2010); fistulotomy (12/06/2010); proctoscopy (12/06/2010); examination under anesthesia (12/06/2010); exam under anesthesia (02/28/2011); proctoscopy (02/28/2011);incision and drainage of abscess (05/05/2011); exam under anesthesia (05/05/2011); proctoscopy (05/05/2011); wound debridement (05/05/2011); incision and drainage of abscess (02/19/2012); examination under anesthesia (02/19/2012); incision and drainage of abscess (02/19/2012); proctoscopy (02/19/2012); fistulotomy (02/19/2012); examination under anesthesia (11/26/2012); proctoscopy (11/26/2012); fistulotomy (11/26/2012); examination under anesthesia (04/02/2013); proctoscopy (04/02/2013); fistulotomy (04/02/2013); examination under anesthesia (N/A, 06/09/2014); fistulotomy (N/A, 06/09/2014); exam under anesthesia (N/A, 06/08/2015); proctoscopy (N/A, 06/08/2015); colonoscopy (N/A, 10/12/2017); and colonoscopy (N/A, 02/05/2020). Social History: His reports that he has never smoked. He has never used smokeless tobacco. He reports that he does not drink alcohol or use drugs., , Family History: He family history includes Coronary Heart Disease in his paternal grandfather; GI inhis paternal uncle and another family member. Allergies: has No Known Allergies. Medications: Scheduled Medications: No current outpatient medications on file. Current Facility-Administered Medications Medication Dose Route Frequency Last Rate Last Dose vedolizumab (ENTYVIO) 300 mg in NaCl 0.9% (NS) 250 mL IV infusion 300 mg IV Infusion PRN Review of Systems: General: No recent fever or chills, no recent weight loss nor weight gain HEENT: No visual disturbances, hearing loss, tinnitus, nor vertigo CVS: No chest pain, palpitations, orthopnea, nor PND Resp: No dyspnea, asthma, chronic cough, nor hemoptysis GI: SEE HPI : No dysuria, hematuria, nor nocturia Musculoskeletal: No joint swelling, joint pain, cramping nor weakness Derm: No rash, suspicious skin lesions, skin cancer nor skin ulcers Neuro: No seizures, nor stroke Endo: No diabetes nor thyroid disease Heme: No abnormal bruising or bleeding Allergy: No urticaria, allergic rash, nor recurrent infections Psych: No depression, anxiety, nor mood swings Physical Exam: Temp: [36.2 C (97.2 F)] Pulse: [76] BP: (116)/(86) @LASTSAO2(3)@ General: Alert, awake, calm, in no acute respiratory distress Skin: no vascular spiders, no jaundice, no vitiligo, no rash, no excoriations Head: normocephalic, atraumatic, no wasting of temporalis or masseter musculature Mouth/Throat: no bleeding from mucous membranes Neck: supple, midline trachea, no thyromegaly Lymph Nodes: no palpable cervical, supraclavicular, axillary, or inguinal lymphadenopathy Chest: no spinal or renal angle tenderness, no chest wall abnormality, no kyphosis or scoliosis Lungs: clear to percussion and auscultation Heart: regular rate and rhythm, normal S1 and S2, no murmur, gallop or rub Abdomen: soft, nondistended, nontender, no palpable liver or spleen, no ascites, no bruit, normal bowel sounds Musculoskeletal: no muscle tenderness or masses Extremities: no cyanosis, clubbing, edema, palmar rubor, or Dupuytren contracture Pulses: intact in upper extremities, intact in lower extremities Neurological: no asterixis or tremor Psychiatric: oriented to place, time, and person, normal affect. Labs: CBC WBC x10^3 (/uL) Date Value 10/30/2014 8.1 WBC (10*3/L) Date Value 11/13/2019 5.25 RBC x10^6 (/uL) Date Value 10/30/2014 4.82 RBC (10*6/L) Date Value 11/13/2019 5.35 PLT x10^3 (/uL) Date Value 10/30/2014 666 (H) PLT (10*3/L) Date Value 11/13/2019 331 (H) HGB Date Value 11/13/2019 13.6 g/dL 10/30/2014 10.2 G/DL (L) HCT (%) Date Value 11/13/2019 41.3 10/30/2014 33.0 (L) CMP NA Date Value 11/13/2019 139 mmol/L 10/30/2014 139 MMOL/L K Date Value 11/13/2019 4.0 mmol/L 10/30/2014 4.6 MMOL/L CALCIUM Date Value 11/13/2019 9.2 mg/dL 10/30/2014 9.6 MG/DL CL Date Value 11/13/2019 106 mmol/L 10/30/2014 99 MMOL/L BUN Date Value 11/13/2019 18 mg/dL 10/30/2014 14 MG/DL CREATININE Date Value 11/13/2019 0.80 mg/dL 10/30/2014 0.85 MG/DL GLUCOSE Date Value 11/13/2019 88 mg/dL 10/30/2014 77 MG/DL CO2 TOTAL Date Value 11/13/2019 24 mmol/L 10/30/2014 31 MMOL/L ALBUMIN Date Value 11/13/2019 4.1 g/dL 10/30/2014 4.1 G/DL T PROTEIN Date Value 11/13/2019 7.7 g/dL 10/30/2014 7.7 G/DL TOTAL BILI Date Value 11/13/2019 0.5 mg/dL 10/30/2014 0.5 MG/DL BILI UNCON (MG/DL) Date Value 07/29/2013 0.1 BILI CONJ (MG/DL) Date Value 07/29/2013 0.0 ALT(SGPT) (U/L) Date Value 05/31/2018 18 10/30/2014 10 ALTv (U/L) Date Value 11/13/2019 49 AST(SGOT) (U/L) Date Value 11/13/2019 38 10/30/2014 13 ALK PHOS (U/L) Date Value 11/13/2019 71 10/30/2014 59 Endoscopy: Colonoscopy 10/12/2017: - Perianal fistula found on perianal exam. - Crohn's disease. Inflammation was found from the anus to the sigmoid colon. This was severe. Biopsied. - Colonic fistula. Pathology 10/12/2017: A. RECTUM, BIOPSY: - COLONIC MUCOSA WITH FOCAL CRYPTITIS AND GRANULATION TISSUE - NO DYSPLASIA IDENTIFIED Colonoscopy 02/05/2020: - Preparation of the colon was fair. - Perianal skin tags found on perianal exam. - Diffuse mild mucosal changes were found in the rectum, in the recto-sigmoid colon and in the sigmoid colon. Biopsied. - Patchy mild mucosal changes were found in the descending colon, at the splenic flexure, in the transverse colon, at the hepatic flexure and in the ascending colon. Biopsied. - The examined portion of the ileum was normal. Biopsied. Pathology 02/05/2020: A. SMALL BOWEL, TERMINAL ILEUM, BIOPSY - ILEAL MUCOSA WITH NO PATHOLOGICAL CHANGE - NO GRANULOMA OR DYSPLASIA IDENTIFIED B. COLON, CECUM, BIOPSY OF PSEUDOPOLYPS: - COLONIC MUCOSA WITH INCREASED LYMPHOPLASMACYTIC INFILTRATE IN THE LAMINA PROPRIA, AND FOCAL CRYPTITIS - NO GRANULOMA OR DYSPLASIA IDENTIFIED C. COLON, RIGHT ASCENDING, BIOPSY: - COLONIC MUCOSA WITH INCREASED LYMPHOPLASMACYTIC INFILTRATE IN THE LAMINA PROPRIA, AND MILD CRYPT ARCHITECTURAL DISTORTION - NO CRYPTITIS OR GRANULOMA OR DYSPLASIA IDENTIFIED D. COLON, TRANSVERSE, BIOPSY: - COLONIC MUCOSA WITH INCREASED LYMPHOPLASMACYTIC INFILTRATE IN THE LAMINA PROPRIA, AND FOCAL CRYPTITIS - NO GRANULOMA OR DYSPLASIA IDENTIFIED E. COLON, LEFT DESCENDING AND SIGMOID, BIOPSY: - COLONIC MUCOSA WITH INCREASED LYMPHOPLASMACYTIC INFILTRATE IN THE LAMINA PROPRIA AND MILD CRYPT ARCHITECTURAL DISTORTION - NO CRYPTITIS OR GRANULOMA OR DYSPLASIA IDENTIFIED F. RECTUM, BIOPSY: - RECTAL MUCOSA WITH INCREASED LYMPHOPLASMACYTIC INFILTRATE IN THE LAMINA PROPRIA - NO CRYPTITIS OR GRANULOMA OR DYSPLASIA IDENTIFIED Assessment and Plan: 1. Crohn's colitis, with fistula (primary encounter diagnosis) 2. Immunosupression 3. NICOLE - He has h/o Crohn's disease with perianal disease dxd 2008 on colonoscopy. He has lost response to Remicade, Humira, and Cimzia. He was recently hospitalized for serum sickness like reaction after given a dose of Remicade. Recent colonoscopy 02/05/2020 showed active Crohn's disease in colon except forrectum. He is doing well on Entyvio so will continue current care. - Continue Entyvio q 8 weeks - Check CBC, CMP today - Offered to give PPSV23 today but patient defers as his doesn't want him to TPMT level: 30 (2010) HBsAg: negative (2017) Quantiferon TB test: negative Health Maintenance Ferritin: 13 Vitamin D: 19 Dexa scan: RBC Folate: 600's Vit B12: 632 HAV Ab: Twinrix 2017 HBV surface Ab: Twinrix 2017 Flushot: 04/2019 Pneumovax: given PCV 02/2018. Offered to give PPSV23 today 02/24/2020 but patient defers as his doesn't want him to Tdap: 05/2018 Screening colonoscopy: 01/2020 Screening skin exam: N/A F/U 6 months Signed: Elizabeth Arriaza PA-C Department of Internal Medicine - Gastroenterology and Hepatology I have personally seen and examined the patient with Elizabeth Arriaza. I have formulated the entire assessment and plan for this patient. Continue with entyvio. URIAH CHILDRESS DO [facility] GASTROENTEROLOGY [address] [place] [address] Ekaterina Munoz MA - 02/24/2020 1:30 PM CDTChristopher Jerel Amaya is a 34 year old male seen for 2 wk post op follow up Additional medications were reviewed and added as needed. Appearance: healthy,alert,cooperative. This patient is accompanied in the office by his self. Patient denies any pain or complications at this time. Medications, allergies, fall risk and suicide assessment reviewed with patient / cj documented in this encounter Plan of Treatment Date Type Specialty Care Team Description 04/29/2020 Nurse Visit Infusion Therapy sImael Childress DO [id number] [place] [address] [phone] Ute Porras Adult Infusion Nurse 06/24/2020 Nurse Visit Infusion Therapy Ismael Childress DO [id number] [place] [address] [phone] Ute Dela Cruz Adult Infusion Nurse 08/24/2020 Office Visit Gastroenterology [place], Ismael Rooney, DO [address] [place], [place] [address] Health Maintenance Due Date Last Done Comments VARICELLA VACCINES (1 of 2 - 2-dose childhood series) 1988 PNEUMOCOCCAL 0-64 YEARS COMBINED SERIES (2 of 3 - 04/30/2018 03/05/2018 PPSV23) INFLUENZA VACCINE (#1) 2020 05/13/2019 Depression Screening 02/04/2021 02/05/2020 DTaP,Tdap,and Td Vaccines (2 - Td) 05/31/2028 05/31/2018 documented as of this encounter Procedures Procedure Name Priority Date/Time Associated Diagnosis Comme nts CBC WITH DIFF Routine 02/24/2020 3:06 PM Crohn's disease of R esults for this CDT large intestine procedure ar e in without complica tion the results Immunosuppressio n section. Iron deficiency anemia, unspecified iron deficiency anemia type COMP. METABOLIC Routine 02/24/2020 3:06 PM Crohn's disease of Results for this PANEL (26223) CDT large intestine procedure a re in without complica tion the results Immunosuppression section. documented in this encounter Results COMP. METABOLIC PANEL (47202) (02/24/2020 3:06 PM CDT) Pathologist Sig nature NA 140 135 - 145 mmol/L [facility] K 4.8 3.5 - 5.0 mmol/L [facility] CL 105 98 - 108 mmol/L [facility] CO2 TOTAL 23 23 - 31 mmol/L [facility] AGAP 12 2 - 16 [facility] BUN 19 7 - 23 mg/dL [facility] GLUCOSE 76 70 - 110 mg/dL [facility] CREATININE 0.85 0.60 - 1.25 [facility] mg/dL [facility] TOTAL BILI 0.7 0.1 - 1.1 mg/dL [facility] CALCIUM 9.7 8.6 - 10.6 mg/dL [facility] T PROTEIN 8.1 6.3 - 8.2 g/dL [facility] ALBUMIN 4.4 3.5 - 5.0 g/dL [facility] ALK PHOS 69 34 - 122 U/L [facility] ALTv 42 5 - 50 U/L [facility] AST(SGOT) 37 13 - 40 U/L [facility] eGFR Calculation 104.5 mL/min/1.73m2 [facility] (Non-) [facility] eGFR Calculation 126.6 mL/min/1.73m2 [facility] () [facility] Specimen Blood - HAND, LEFT Narrative Performed At [facility] of Glomerular Filtration Rate [facility] (GFR) and Staging of Kidney Disease* CAMPUS + + --+ + | GFR (mL/min/1.73 m2) | With Kidney Damage | Without Kidney Damage + + --+ + | >90 | Stage one | Normal + + --+ + | 60-89 | Stage two | Decreased GFR + + --+ + | 30-59 | Stage three | Stage three + + --+ + | 15-29 | Stage four | Stage four + + --+ + | <15 (or dialysis) | Stage five | Stage five + + --+ + *Each stage assumes the associated GFR level has been in effect for at least three months. Stages 1 to 5, with or without kidney disease, indicate chronic kidney disease. Notes: Determination of stages one and two (with eGFR >59mL/min/1.73 m2) requires estimation of kidney damage for at least three months as defined by structural or functional abnormalities of the kidney, manifested by either: Pathological abnormalities or Markers of kidney damage (including abnormalities in the composition of the blood or urine or abnormalities in imaging tests). Performing Organization Address City/State/Zipcode Phone Number [facility] CLIA: [id number] [place] [address] [facility] [address] [place] [address] WITH DIFF (02/24/2020 3:06 PM CDT) Pathologist Sig nature WBC 6.76 4.20 - 10.70 [facility] 10*3/L [facility] RBC 5.61 (H) 4.26 - 5.52 [facility] 10*6/L [facility] HGB 15.0 12.2 - 16.4 [facility] g/dL [facility] HCT 46.3 38.4 - 49.3 % [facility] MCV 82.5 81.7 - 95.6 fL [facility] MCH 26.7 26.1 - 32.7 pg [facility] MCHC 32.4 31.2 - 35.0 [facility] g/dL [facility] RDW-SD 47.8 38.5 - 51.6 fL [facility] RDW-CV 16.1 (H) 12.1 - 15.4 % [facility] PLT 352 (H) 150 - 328 [facility] 10*3/L [facility] MPV 9.7 (L) 9.8 - 13.0 fL [facility] NRBC/100 WBC 0.0 0.0 - 10.0 /100 [facility] WBCs [facility] NRBC x10^3 <0.01 10*3/L [facility] GRAN MAT (NEUT) % 64.6 % [facility] IMM GRAN % 0.10 % [facility] LYMPH % 22.0 % [facility] MONO % 8.9 % [facility] EOS % 4.1 % [facility] BASO % 0.3 % [facility] GRAN MAT x10^3(ANC) 4.36 1.99 - 6.95 [facility] 10*3/uL [facility] IMM GRAN x10^3 <0.03 0.00 - 0.06 [facility] 10*3/uL [facility] LYMPH x10^3 1.49 1.09 - 3.23 [facility] 10*3/uL [facility] MONO x10^3 0.60 0.36 - 1.02 [facility] 10*3/uL [facility] EOS x10^3 0.28 0.06 - 0.53 [facility] 10*3/uL [facility] BASO x10^3 <0.03 0.01 - 0.09 [facility] 10*3/uL [facility] Specimen Blood - HAND, LEFT Performing Organization Address City/[facility]/Zipcode Phone Number [facility] CLIA: [id number] [place] [address] [facility] [address] [facility] documented in this encounter Visit Diagnoses Diagnosis Crohn's disease of large intestine witho ut complication - Primary Regional enteritis of large intestine Immunosuppression Unspecified disorder of immune mechanism Iron deficiency anemia, unspecified iron deficiency anemia type documented in this encounter Insurance Payer Benefit Plan Subscriber ID Effective Dates Phone Address Type / Group [facility] [id number] 2017-Maribel [phone] [address] PPO/POS [place] - OUT OF t [id number] [place] [address] documented as of this encounter Advance Directives Type Date Recorded Patient Cloth Colorer Explanati on Advance Directives and Living 12/02/2012 3:24 PM Will Power of Bridge Toll Collector 12/02/2012 3:24 PM
--- OUTSIDE RECORDS SUMMARY | 2020-05-02 23:45 | XMS REPORT | Summary of Care ---
:1985 Author Organization [facility] - [facility] Address [address] [place] [address] Care Team Providers Name Role Phone Pcp, Does Not Have A Primary Care Provider Encounter Details Date Type Department Care Team Description 02/24/2020 Orders Only [facility] Doctor Unassigned, No [address] [facility] [place] [address] [address] [place] [address] Allergies No Known Allergiesdocumented as of this encounter (statuses as of 02/27/2020) Medications Hospital, Clinic, or Ordered Dose Route Frequency Start Date End D ate Status Other Facility Administered Medication vedolizumab (ENTYVIO) 300 mg IV Infusion PRN 02/01/2018 Active 300 mg in NaCl 0.9% (NS) 250 mL IV infusion documented as of this encounter (statuses as of 02/27/2020) Active Problems Problem Noted Date Crohn's disease of large intestine without complicatio n 12/23/2019 Overview: Added automatically from request for adriane arguello [id number] Fever of unknown origin 11/22/2017 Post procedure discomfort 10/12/2017 Crohn's disease of both small and large intestine with abscess 10/02/2017 Overview: Added automatically from request for adriane arguello [id number] Obesity (BMI 30-39.9) 11/01/2016 Iron deficiency anemia 05/03/2015 Sepsis 05/02/2015 Gluteal abscess 05/01/2015 Dehydration 02/27/2011 Crohn's disease 01/15/2011 documented as of this encounter (statuses as of 02/27/2020) Resolved Problems Problem Noted Date Resolved Date Regional enteritis of small intestine with large intestine 0 12/28/2010 01/15/2011 documented as of this encounter (statuses as of 02/27/2020) Immunizations Name Administration Dates Next Due HEP [...] Therapy Ismael Childress, DO [id number] [place] [address] [phone] 2Ute Adult Infusion Nurse 04/29/2020 Nurse Visit Infusion Therapy Ismael Childress DO [id number] [place] [address] [phone] 2Ute Adult Infusion Nurse 08/24/2020 Office Visit Gastroenterology Ismael Childress, DO [address] [place], [place] [address] Health Maintenance Due Date Last Done Comments VARICELLA VACCINES (1 of 2 - 2-dose childhood series) 1986 PNEUMOCOCCAL 0-64 YEARS COMBINED SERIES (2 of 3 - 04/30/2018 03/05/2018 PPSV23) INFLUENZA VACCINE (#1) 2020 05/13/2019 Depression Screening 02/04/2021 02/05/2020 DTaP,Tdap,and Td Vaccines (2 - Td) 05/31/2028 05/31/2018 documented as of this encounter Procedures Procedure Name Priority Date/Time Associated Diagnosis Comme nts INSURANCE CORRESPONDENCE Routine 02/24/2020 12:01 AM CDT documented in this encounter Results Not on filedocumented in this encounter Insurance Payer Benefit Plan Subscriber ID Effective Dates Phone Address Type / Group BCBS [facility] [id number] 2017-Maribel [phone] [address] PPO/POS [place] - OUT OF t 87 [id number] [place] [address] documented as of this encounter Advance Directives Type Date Recorded Patient Fixed Income Director Explanati on Advance Directives and Living 12/02/2012 3:24 PM Will Power of Clinical Neuropsychologist 12/02/2012 3:24 PM
--- OUTSIDE RECORDS SUMMARY | 2020-05-02 23:45 | XMS REPORT | Summary of Care ---
:1985 Author Organization [facility] Address [address] [place] [address] Care Team Providers Name Role Phone Pcp, Does Not Have A Primary Care Provider Reason for Visit Reason Comments Follow-up 2 wk post op Encounter Details Date Type Department Care Team Description 02/24/2020 Office Visit [facility] Uriah Childress Crohn's dis ease of large intestine without complication (Primary Dx); GASTROENTEROLOGY -[facility] K, DO Immunosuppression; [address] Iron deficiency anemia, unsp ecified iron deficiency anemia type [address] [facility] [id number] [place] [address] [phone] Allergies No Known Allergiesdocumented as of this [...] Added automatically from request for adriane arguello [id number] Fever of unknown origin 11/22/2017 Post procedure discomfort 10/12/2017 Crohn's disease of both small and large intestine with abscess 10/02/2017 Overview: Added automatically from request for adriane arguello [id number] Obesity (BMI 30-39.9) 11/01/2016 Iron deficiency anemia [...] flu like illness and was admitted to [facility] 11/22/17. Stool studies showed elevated calprotectin but [...] patient. Continue with entyvio. URIAH CHILDRESS DO [facility] GASTROENTEROLOGY [address] [place] [address] Ekaterina Munoz MA - 02/24/2020 1:30 PM [...] Team Description 04/29/2020 Nurse Visit Infusion Therapy Ismael Childress DO [id number] [place] [address] [phone] Ute Porras Adult Infusion Nurse 06/24/2020 Nurse Visit Infusion Therapy Ismael Childress DO [id number] [place] [address] [phone] Ute Dela Cruz Adult Infusion Nurse 08/24/2020 Office Visit Gastroenterology [place], Ismael Rooney, DO [address] [place], [place] [address] Health Maintenance Due Date [...] Crohn's disease of Results for this PANEL (13054) CDT large intestine procedure a re in without complica tion the results Immunosuppression section. documented in this encounter Results COMP. METABOLIC PANEL (23477) (02/24/2020 3:06 PM CDT) Pathologist Sig nature NA 140 135 - 145 mmol/L [facility] K 4.8 3.5 - 5.0 mmol/L [facility] SERVICES[facility] CL 105 98 - 108 mmol/L [facility] CO2 TOTAL 23 23 - 31 mmol/L [facility] AGAP 12 2 - 16 [facility] BUN 19 7 - 23 mg/dL [facility] GLUCOSE 76 70 - 110 mg/dL [facility] CREATININE 0.85 0.60 - 1.25 [facility] mg/dL SERVICESEL [facility] TOTAL BILI 0.7 0.1 - 1.1 mg/dL [facility] CALCIUM 9.7 8.6 - 10.6 mg/dL [facility] T PROTEIN 8.1 6.3 - 8.2 g/dL [facility] ALBUMIN 4.4 3.5 - 5.0 g/dL [facility] ALK PHOS 69 34 - 122 U/L [facility] ALTv 42 5 - 50 U/L [facility] AST(SGOT) 37 13 - 40 U/L [facility] eGFR Calculation 104.5 mL/min/1.73m2 [facility] (Non-) [facility] eGFR Calculation 126.6 mL/min/1.73m2 [facility] () [facility] Specimen Blood - HAND, LEFT Narrative Performed At [facility] [place] Glomerular Filtration Rate [facility] (GFR) and Staging of Kidney Disease* CAMPUS [...] tests). Performing Organization Address City/State/Zipcode Phone Number [facility] CLIA: [id number] [place] [address] SERVICES-[facility] [address] [place] [address] WITH DIFF (02/24/2020 3:06 PM CDT) Pathologist Sig nature WBC 6.76 4.20 - 10.70 [facility] 10*3/L [facility] RBC 5.61 (H) 4.26 - 5.52 [facility] 10*6/L [facility] HGB 15.0 12.2 - 16.4 [facility] g/dL [facility] HCT 46.3 38.4 - 49.3 % [facility] SERVICES[facility] MCV 82.5 81.7 - 95.6 fL [facility] MCH 26.7 26.1 - 32.7 pg [facility] MCHC 32.4 31.2 - 35.0 [facility] g/dL [facility] RDW-SD 47.8 38.5 - 51.6 fL [facility] RDW-CV 16.1 (H) 12.1 - 15.4 % [facility] PLT 352 (H) 150 - 328 [facility] 10*3/L [facility] MPV 9.7 (L) 9.8 - 13.0 fL [facility] NRBC/100 WBC 0.0 0.0 - 10.0 /100 [facility] WBCs [facility] NRBC x10^3 <0.01 10*3/L [facility] GRAN MAT (NEUT) % 64.6 % [facility] SERVICES[facility] IMM GRAN % 0.10 % [facility] SERVICES[facility] LYMPH % 22.0 % [facility] MONO % 8.9 % [facility] EOS % 4.1 % [facility] BASO % 0.3 % [facility] GRAN MAT x10^3(ANC) 4.36 1.99 - 6.95 [facility] 10*3/uL [facility] IMM GRAN x10^3 <0.03 0.00 - 0.06 [facility] 10*3/uL [facility] LYMPH x10^3 1.49 1.09 - 3.23 [facility] 10*3/uL [facility] MONO x10^3 0.60 0.36 - 1.02 [facility] 10*3/uL SERVICES[facility] EOS x10^3 0.28 0.06 - 0.53 [facility] 10*3/uL SERVICES[facility] BASO x10^3 <0.03 0.01 - 0.09 [facility] 10*3/uL [facility] Specimen Blood - HAND, LEFT Performing Organization Address City/[facility]/Zipcode Phone Number [facility] CLIA: [id number] [place] [address] [facility] [address] [facility] documented in this encounter Visit Diagnoses Diagnosis Crohn's disease of large intestine witho ut complication - Primary Regional enteritis of large intestine Immunosuppression Unspecified disorder of immune mechanism Iron deficiency anemia, unspecified iron deficiency anemia type documented in this encounter Insurance Payer Benefit Plan Subscriber ID Effective Dates Phone Address Type / Group [facility] [id number] 2017-Maribel [phone] [address] PPO/POS [place] - OUT OF t 87 [id number] [place] [address] documented as of this encounter Advance Directives Type Date Recorded 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
--- OUTSIDE RECORDS SUMMARY | 2020-05-02 23:45 | XMS REPORT | Summary of Care ---
:1985 Author Organization [facility] Address [address] [place] [address] Care Team Providers Name Role Phone Pcp, Does Not Have A Primary Care Provider Reason for Visit Reason Comments Infusion Therapy (L3)entyvio (Routine) Status Reason Specialty Diagnoses / Referred By Referred To Procedures Contact Contact Authorized Infusion Therapy Diagnoses Crohn's disease of large intestine without complication [place], Procedures CONSULT/REFERRAL AMB INFUSION THERAPY Preferred location: [facility] Uriah Rooney, DO [address] [facility] [id number] [place] [address] Encounter Details Date Type Department Care Team Description 04/29/2020 Nurse Visit [facility] Infusion Sean Childress, DO [address] [facility] [id number] [place], [place] [id number] Crohn's disease of [facility] 2, Ute Adult Infusion Nurse both small and large [place] intestine with abscess [address] [facility] (Primary D x) [place] [address] Allergies No Known Allergiesdocumented as of this encounter (statuses as of 04/29/2020) Medications Hospital, Clinic, or Ordered Dose Route Frequency Start Date End D ate Status Other Facility Administered Medication vedolizumab (ENTYVIO) 300 mg IV Infusion PRN 02/01/2018 Active 300 mg in NaCl 0.9% (NS) 250 mL IV infusion documented as of this encounter (statuses as of 04/29/2020) Active Problems Problem Noted Date Crohn's disease of large intestine without complicatio n 12/23/2019 Overview: Added automatically from request for adriane arguello [id number] Fever of unknown origin 11/22/2017 Post procedure discomfort 10/12/2017 Crohn's disease of both small and large intestine with abscess 10/02/2017 Overview: Added automatically from request for adriane arguello [id number] Obesity (BMI 30-39.9) 11/01/2016 Iron deficiency anemia 05/03/2015 Sepsis 05/02/2015 Gluteal abscess 05/01/2015 Dehydration 02/27/2011 Crohn's disease 01/15/2011 documented as of this encounter (statuses as of 04/29/2020) Resolved Problems Problem Noted Date Resolved Date Regional enteritis of small intestine with large intestine 0 12/28/2010 01/15/2011 documented as of this encounter (statuses as of 04/29/2020) Immunizations Name Administration Dates Next Due HEP [...] been in contact with No / Unsure 04/29/2020 1:52 PM TRIM OPERATOR someone who was confirmed or suspected to have Coronavirus / COVID-19? documented as of this encounter Last Filed Vital Signs Vital Sign Reading Time Taken Comments Blood Pressure 128/81 04/29/2020 1:58 PM TRIM OPERATOR Pulse 75 04/29/2020 1:58 PM TRIM OPERATOR Temperature 36.2 C (97.1 F) 04/29/2020 1:58 PM TRIM OPERATOR Respiratory Rate - - Oxygen Saturation 97% 04/29/2020 1:58 PM TRIM OPERATOR Inhaled Oxygen Concentration - - Weight 128.5 kg (283 lb 3.2 oz) 04/29/2020 1:58 PM TRIM OPERATOR Height 172.7 cm (5' 8") 04/29/2020 1:58 PM TRIM OPERATOR Body Mass Index 43.06 04/29/2020 1:58 PM TRIM OPERATOR documented in this encounter Progress Notes Leticia Quiroz, RN - 04/29/2020 2:00 PM CST Order History- Last given 03/04/20 Outpatient Date/Time Action Taken User Additional Information 02/16/20 1448 Sign Milady Romero LVN Ordering Mode: Standing Delegated Orders 02/18/20 1301 Verbal Cosign Uriah Childress DO Comments Drug to be infused: Entyvio Amount: 300 mg Frequency: q 8 weeks Associated Diagnoses ICD-10-CM ICD-9-CM Crohn's disease of large intestine without complication - Primary Infusion Therapy Note ALLERGIES:Patient has no known allergies. Diagnosis (Primary)Crohn's disease of both small and large intestine with abscess Time Out Patient identified byName and Infusion verified withpatient IV Therapy Type:Peripheral Site Location:right hand Blood return present:yes I.V. Flush:0.9 NS 10cc x2vial(s) I.V. Patent:yes I.V. Fluids:None During administration:burning:no, redness:noand swelling: no Comments:#24 G placed in right hand by aseptic technique X 1 attempt. Site covered with transparent dressing. HYDRATION/THERAPEUTIC DRUG DOSE ROUTE START TIME STOP TIME vedolizumab (ENTYVIO) 300 mg in NaCl 0.9% (NS) 250 mL IV [id number] Comments:Tolerated tx without difficulty. PIV removed after tx intact. No redness or swelling at the site. Slight pressure applied to the site with 2x2 guaze and wrapped with Coban dressing. documented in this encounter Plan of Treatment Date Type Specialty Care Team Description 06/24/2020 Nurse Visit Infusion Therapy Ismael Childress DO [id number] [place] [address] [phone] 3, Ute Adult Infusion Nurse 08/24/2020 Office Visit Gastroenterology Ismael Childress, DO [address] [place], [place] [address] Health Maintenance Due Date [...] encounter Visit Diagnoses Diagnosis Crohn's disease of both small and large intestine with abscess - Primary Regional enteritis of small intestine wi th large intestine documented in this encounter Administered Medications Medication Order MAR Action Action Date Dose Rate Site vedolizumab (ENTYVIO) 300 mg in Given 04/29/2020 2:42 PM TRIM OPERATOR 30 0 mg NaCl 0.9% (NS) 250 mL IV infusion 300 mg, IV Infusion, ONCE, 1 dose, Elsa 04/29/20 at 1415, 250 mL documented in this encounter Insurance Payer Benefit Plan Subscriber ID Effective Dates Phone Address Type / Group [facility] [id number] 2017-Maribel [phone] [address] PPO/POS [place] - OUT OF t 87 [id number] [place] [address] documented as of this encounter Advance Directives Type Date Recorded Patient Student Services Director Explanati on Advance Directives and Living 12/02/2012 3:24 PM Will Power of Multimedia Manager 12/02/2012 3:24 PM
--- OUTSIDE RECORDS SUMMARY | 2020-05-02 23:45 | XMS REPORT | Summary of Care ---
:1985 Author Organization [facility] Address [address] [place] [id number] Care Team Providers Name Role Phone Pcp, Does Not Have A Primary Care Provider Reason for Visit Reason Comments Infusion Therapy (Routine) Status Reason Specialty Diagnoses / Referred By Referred To Procedures Contact Contact Authorized Infusion Therapy Diagnoses Crohn's disease of large intestine without complication [place], Procedures CONSULT/REFERRAL AMB INFUSION THERAPY Preferred location: [facility] Uriah Rooney, DO [address] [facility] [id number] [place] [id number] Encounter Details Date Type Department Care Team Description 03/04/2020 Nurse Visit [facility] Infusion Sean Childress, DO [address] [facility] [id number] [place], [place] [id number] Crohn's disease of [facility] 2, [place] [facility] Nurse both small and large [place] intestine with abscess [address] [facility] (Primary D x) [place] [address] Allergies No Known Allergiesdocumented as of this encounter (statuses as of 03/08/2020) Medications Hospital, Clinic, or Ordered Dose Route Frequency Start Date End D ate Status Other Facility Administered Medication vedolizumab (ENTYVIO) 300 mg IV Infusion PRN 02/01/2018 Active 300 mg in NaCl 0.9% (NS) 250 mL IV infusion documented as of this encounter (statuses as of 03/08/2020) Active Problems Problem Noted Date Crohn's disease of large intestine without complicatio n 12/23/2019 Overview: Added automatically from request for adriane arguello [id number] Fever of unknown origin 11/22/2017 Post procedure discomfort 10/12/2017 Crohn's disease of both small and large intestine with abscess 10/02/2017 Overview: Added automatically from request for adriane arguello [id number] Obesity (BMI 30-39.9) 11/01/2016 Iron deficiency anemia 05/03/2015 Sepsis 05/02/2015 Gluteal abscess 05/01/2015 Dehydration 02/27/2011 Crohn's disease 01/15/2011 documented as of this encounter (statuses as of 03/08/2020) Resolved Problems Problem Noted Date Resolved Date Regional enteritis of small intestine with large intestine 0 12/28/2010 01/15/2011 documented as of this encounter (statuses as of 03/08/2020) Immunizations Name Administration Dates Next Due HEP [...] Sign Reading Time Taken Comments Blood Pressure 132/85 03/04/2020 2:07 PM CDT Pulse 59 03/04/2020 2:07 PM CDT Temperature 36.4 C (97.5 F) 03/04/2020 2:07 PM CDT Respiratory Rate 20 03/04/2020 2:07 PM CDT Oxygen Saturation - - Inhaled Oxygen Concentration - - Weight 128.8 kg (284 lb) 03/04/2020 2:07 PM CDT Height - - Body Mass Index 43.18 02/24/2020 1:18 PM CDT documented in this encounter Patient Instructions Patient Farhad Cassidy, STEFANO - 03/04/2020 2:00 PM CDT Patient Education Vedolizumab injection solution Brand Name: Adeline What is this medicine? VEDOLIZUMAB (Leora alvarez) is used to treat ulcerative colitis and Crohn's disease in adult patients. How should I use this medicine? This medicine is for infusion into a vein. It is given by a health home care physical therapist in a hospital or clinic setting. A special MedGuide will be given to you by the pharmacist with each prescription and refill. Be sureto read this information carefully each time. Talk to your binder operator regarding the use of this medicine in children. This medicine is not approved for use in children. What side effects may I notice from receiving this medicine? Side effects that you should report to your doctor or health home care physical therapist as soon as possible: allergic reactions like skin rash, itching or hives, swelling of the face, lips, or tongue breathing problems changes in vision chest pain dark urine depression, feelings of sadness dizziness general ill feeling or flu-like symptoms irregular, missed, or painful menstrual periods light-colored stools loss of appetite, nausea muscle weakness problems with balance, talking, or walking right upper belly pain unusually weak or tired yellowing of the eyes or skin Side effects that usually do not require medical attention (report to your doctor or health home care physical therapist if they continue or are bothersome): aches, pains headache stomach upset tiredness What may interact with this medicine? steroid medicines like prednisone or cortisone TNF-alpha inhibitors like natalizumab, adalimumab, and infliximab vaccines What if I miss a dose? It is important not to miss your dose. Call your doctor or health home care physical therapist if you are unable to keep an appointment. Where should I keep my medicine? This drug is given in a hospital or clinic and will not be stored at home. What should I tell my health care provider before I take this medicine? They need to know if you have any of these conditions: diabetes hepatitis B or history of hepatitis B infection HIV or AIDS immune system problems infection or history of infections liver disease recently received or scheduled to receive a vaccine scheduled to have surgery tuberculosis, a positive skin test for tuberculosis or have recently been in close contact with someone who has tuberculosis an unusual or allergic reaction to vedolizumab, other medicines, foods, dyes, or preservatives or trying to get breast-feeding What should I watch for while using this medicine? Your condition will be monitored carefully while you are receiving this medicine. Visit your doctor for regular check ups. Tell your doctor or healthcare professional if your symptoms do not start to get better or if they get worse. Stay away from people who are sick. Call your doctor or health home care physical therapist for advice if you get a fever, chills or sore throat, or other symptoms of a cold or flu. Do not treat yourself. In some patients, this medicine may cause a serious brain infection that may cause . If you have any problems seeing, thinking, speaking, walking, or standing, tell your doctor right away. If you cannot reach your doctor, get urgent medical care. NOTE:This sheet is a summary. It may not cover all possible information. If you have questions aboutthis medicine, talk to your doctor, pharmacist, or health care provider. Copyright 2018 Elsevier documented in this encounter Progress Notes Leticia Quiroz RN - 03/04/2020 2:00 PM CDT Infusion Therapy Note ALLERGIES:Patient has no known [...] in NaCl 0.9% (NS) 250 mL IV [id number] Comments:Tolerated tx without difficulty. PIV removed after tx intact. No redness or swelling at the site. Slight pressure applied to the site with 2x2 guaze and wrapped with Coban dressing. Farhad Vega RN - 03/04/2020 2:00 PM CDT LAST ADMIN Date: 01/08/2020 Order History Outpatient Date/Time Action Taken User Additional Information 02/16/20 1448 Sign Milady Romero LVN Ordering Mode: Standing Delegated Orders 02/18/20 1301 Verbal Cosign Uriah Childress DO Comments Drug to be infused: Entyvio Amount: 300 mg Frequency: q 8 weeks Associated Diagnoses ICD-10-CM ICD-9-CM Crohn's disease of large intestine without complication - Primary K50.10 555.1 Provider Information Ordering User Ordering Provider Authorizing Provider Milady Romero LVN Luthra, Gurinder K, Uriah Valero, PCP Pcp, Patient Does Not Have A documented in this encounter Plan of Treatment Date Type Specialty Care Team Description 04/29/2020 Nurse Visit Infusion Therapy Ismael Childress, DO [id number] [place] [address] [phone], [facility] [facility] Nurse 06/24/2020 Nurse Visit Infusion Therapy Ismael Childress, DO [id number] [place] [address] [phone], [place] Adult Infusion Nurse 08/24/2020 Office Visit Gastroenterology Ismael Childress, [address] [place], [place] [address] Health Maintenance Due Date [...] Site vedolizumab (ENTYVIO) 300 mg in Given 03/04/2020 2:49 PM CDT 30 0 mg NaCl 0.9% (NS) 250 mL IV infusion 300 mg, IV Infusion, ONCE, 1 dose, Elsa 03/04/20 at 1415, 250 mL documented in this encounter Insurance Payer Benefit Plan Subscriber ID Effective Dates Phone Address Type / Group [facility] [id number] 2017-Maribel [phone] [address] PPO/POS [place] - OUT OF t [id number] [place] [address] documented as of this encounter Advance Directives Type Date Recorded 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
--- OUTSIDE RECORDS SUMMARY | 2020-05-02 23:46 | XMS REPORT | Continuity of Care Document ---
:1985 Author Organization [facility] t Address [address] [place] [address] Care Team Providers Name Role Phone 2, Adult Infusion Nurse Attending Clinician Unavailable Toribio Childress DO Attending Clinician Problems This patient has no known problems. Allergies, Adverse Reactions, Alerts This patient has no known allergies or adverse reactions. Medications This patient has no known medications. Procedures This patient has no known procedures. Encounters Start End Encounter Admission Attending Care Care Encounter Source Date/Time Date/Time Type Type Clinicians Facility Department ID 2020-04-29 2020-04-29 Nurse Ute Porras [facility] [id number] 13:52:48 15:22:48 Visit Adult SPECIALTY [id number] Infusion CARE [id number] Nurse CENTER AT [id number] GILBERTO OLSON 2020-02-24 2020-02-24 Office SUZANNE Childress [id number] 13:16:20 14:59:21 Visit Uriah Rooney SPECIALTY [id number] CARE [id number] CENTER AT [phone] GILBERTO [facility] Results This patient has no known results.
[2020-05-03] MEDS ORDERED: NA CHLORIDE 0.9% 1,000 ML ONE ×2 (00:13→02:04)
[2020-05-03] MEDS ORDERED: FAMOTIDINE 20 MG/2 ML VIAL IV ONE (00:13)
[2020-05-03] MEDS ORDERED: ONDANSETRON 4 MG/2 ML VIAL ONE (00:13)
[2020-05-03] MEDS ORDERED: MORPHINE 4 MG/ML SYR ONE (00:13)
[2020-05-03 00:32] LABS: Absolute Lymphocytes (CBC) 0.6 K/uL (0.7-4.9); Basophils % 0.3 % (0-1.3); Hematocrit 43.6 % (39.6-49.0); Lymphocytes % 3.9 % (15.3-44.8); MPV 8.7 fL (7.6-11.3); RBC Red Blood Cell Count 5.25 M/uL (4.33-5.43)
[2020-05-03 00:46] LABS: ALT/SGPT 26 U/L (12-78); AST/SGOT 19 U/L (15-37); Albumin 4.1 g/dL (3.4-5.0); Alkaline Phosphatase 66 U/L (45-117); BUN Blood Urea Nitrogen 12 mg/dL (7-18); Bicarbonate 24 mmol/L (21-32); Bilirubin Direct 0.2 mg/dL (0-0.2); Bilirubin Total 0.6 mg/dL (0.2-1.0); Glucose Level 99 mg/dL (74-106); Lipase 94 U/L (73-393); Potassium 3.6 mmol/L (3.5-5.1); Protein, Total 8.9 g/dL (6.4-8.2); Sodium Level 138 mmol/L (136-145)
[2020-05-03 01:46] LABS: Blood Morphology Comment NOT SEEN (NOT SEEN); Platelet Estimate ADEQ
--- NOTE | 2020-05-03 02:24 | ER ---
Nurse's Notes [facility] Name: Jan Amaya Age: 34 yrs Sex: Male : 1985 Arrival Date: 05/02/2020 Time: 23:44 Bed 5 Private MD: Diagnosis: Acute Appendicitis Presentation: 05/02 23:48 Chief complaint: Patient states: Lower abdominal pain and cramping, states having sg nausea and vomiting as well, diarrhea x1. Ebola Screen: Patient negative for fever greater than or equal to 101.5 degrees Fahrenheit, and additional compatible Ebola Virus Disease symptoms Patient denies exposure to infectious person. Patient denies travel to an Ebola-affected area in the 21 days before illness onset. No symptoms or risks identified at this time. Initial Sepsis Screen: Does the patient meet any 2 criteria? No. Patient's initial sepsis screen is negative. Does the patient have a suspected source of infection? No. Patient's initial sepsis screen is negative. Risk Assessment: Do you want to hurt yourself or someone else? Patient reports no desire to harm self or others. Onset of symptoms was May 02, 2020. Care prior to arrival: None. Mechanism of Injury: No Mechanism of Injury. Transition of care: patient was not received from another setting of care. 23:48 Acuity: HIRA 3 sg 23:48 Method Of Arrival: Ambulatory sg 23:48 Coronavirus screen: Client denies travel out of the [place] in the last 14 days. mg2 Historical: - Allergies: 23:51 No Known Allergies; sg - Home Meds: 23:51 Entyvio [Active]; sg - PMHx: 23:51 Chron's Disease; sg - PSHx: 23:51 None; sg - Immunization history:: Adult Immunizations up to date. - Social history:: Smoking status: Patient denies any tobacco usage or history of. Screenin:57 Abuse screen: Denies threats or abuse. Denies injuries from another. Nutritional mg2 screening: No deficits noted. Tuberculosis screening: No symptoms or risk factors identified. Fall Risk IV access (20 points). Assessment: 23:50 General: Appears in no apparent distress. comfortable, Behavior is calm, cooperative. mg2 Pain: Complains of pain in suprapubic area Pain does not radiate. Pain currently is 8 out of 10 on a pain scale. Quality of pain is described as aching, Pain began gradually. Neuro: Level of Consciousness is awake, alert, obeys commands, Oriented to person, place, time, situation. Respiratory: Airway is patent Respiratory effort is even, unlabored, Respiratory pattern is regular, symmetrical. GI: Abdomen is non-distended. GI: Reports constipation, nausea, vomiting. : No signs and/or symptoms were reported regarding the genitourinary system. EENT: No signs and/or symptoms were reported regarding the EENT system. Derm: Skin is intact, is healthy with good turgor, Skin is pink, warm \T\ dry. normal. Musculoskeletal: Circulation, motion, and sensation intact. Capillary refill < 3 seconds. 05/03 02:36 Reassessment: seen and examined by hospitalist and advised admission. mg2 Vital Signs: 05/02 23:58 BP 143 / 96; Pulse 84; Resp 18; Temp 97.8; Pulse Ox 100% on R/A; mg2 05/03 01:19 BP 139 / 88; Pulse 80; Resp 17; Pulse Ox 100% ; mg2 03:08 BP 119 / 75; Pulse 94; Resp 18; Temp 97.8; Pulse Ox 98% on R/A; mg2 ED Course: 05/02 23:44 Patient arrived in ED. bp1 23:48 Tavon Bacon MD is Attending Physician. 7 23:50 Triage completed. sg 23:50 Arm band placed on. sg 23:56 Toney Santos, RN is Primary Nurse. mg2 23:57 No provider procedures requiring assistance completed. Inserted saline lock: 20 gauge mg2 in left forearm, using aseptic technique. Blood collected. 05/03 01:20 Patient has correct armband on for positive identification. Pulse ox on. NIBP on. Door mg2 closed. Warm blanket given. 01:58 CT Abd/Pelvis - IV Contrast Only In Process Unspecified. EDMS 02:22 Gael Lowery MD is Hospitalizing Provider. 7 03:08 Patient admitted, IV remains in place. mg2 Administered Medications: 00:06 Drug: NS 0.9% 1000 ml Route: IV; Rate: 1000 ml; Site: left forearm; mg2 01:21 Follow up: IV Status: Completed infusion; IV Intake: 1000ml mg2 00:06 Drug: Pepcid 20 mg Route: IVP; Site: left forearm; mg2 01:21 Follow up: Response: No adverse reaction mg2 00:07 Drug: morphine 4 mg Route: IVP; Site: left forearm; mg2 01:21 Follow up: Response: No adverse reaction mg2 00:07 Drug: Zofran (Ondansetron) 4 mg Route: IVP; Site: left forearm; mg2 01:21 Follow up: Response: No adverse reaction mg2 01:53 Drug: NS 0.9% 1000 ml Route: IV; Rate: 1000 ml; Site: left forearm; mg2 03:14 Follow up: Response: No adverse reaction; IV Status: Completed infusion; IV Intake: mg2 1000ml 02:35 Drug: Zosyn 3.375 grams Route: IVPB; Infused Over: 60 mins; Site: left forearm; mg2 03:14 Follow up: IV Status: Completed infusion mg2 02:35 Drug: Dilaudid 1 mg Route: IVP; Site: left forearm; mg2 Intake: 01:21 IV: 1000ml; Total: 1000ml. mg2 03:14 IV: 1000ml; Total: 2000ml. mg2 Outcome: 02:23 Decision to Hospitalize by Provider. hank 03:09 Admitted to Tele accompanied by tech, via wheelchair, room 406, with chart, Report mg2 called to STEFANO Tobar 03:09 Condition: stable 03:09 Instructed on the need for admit, Demonstrated understanding of instructions. 03:20 Patient left the ED. mg2 Signatures: Dispatcher [employer] EDCurtis Isaac RN RN Toney Santos RN RN mg2 Nita Gandhi Maurice, MD MD [facility]
--- NOTE | 2020-05-03 02:24 | EDPHYS ---
Physician Documentation [facility] Name: Jan Amaya Age: 34 yrs Sex: Male : 1985 Arrival Date: 05/02/2020 Time: 23:44 Bed 5 Private MD: ED Physician Tavon Bacon HPI: 05/03 00:53 This 34 yrs old Male presents to ER via Ambulatory with complaints of Vomiting, mh7 Abdominal Pain, Crohn's Disease. 00:53 The patient presents with abdominal pain in the lower abdomen. Onset: The mh7 symptoms/episode began/occurred. 00:54 Onset: The symptoms/episode began/occurred this morning. The symptoms do not radiate. mh7 Associated signs and symptoms: Pertinent positives: nausea, vomiting, and diarrhea, Pertinent negatives: anorexia, blood in stools, chest pain, constipation, dysuria, fever, headache, hematuria, palpitations, shortness of breath, testicular pain, vomiting blood. The symptoms are described as intermittent, vague, waxing/waning. Modifying factors: The symptoms are alleviated by nothing, the symptoms are aggravated by nothing. Severity of pain: At its worst the pain was moderate today, in the emergency department the pain is unchanged. Historical: - Allergies: 05/02 23:51 No Known Allergies; sg - Home Meds: 23:51 Entyvio [Active]; sg - PMHx: 23:51 Chron's Disease; sg - PSHx: 23:51 None; sg - Immunization history:: Adult Immunizations up to date. - Social history:: Smoking status: Patient denies any tobacco usage or history of. ROS: 05/03 00:54 Constitutional: Negative for fever, chills, and weight loss, Eyes: Negative for injury, mh7 pain, redness, and discharge, ENT: Negative for injury, pain, and discharge, Neck: Negative for injury, pain, and swelling, Cardiovascular: Negative for chest pain, palpitations, and edema, Respiratory: Negative for shortness of breath, cough, wheezing, and pleuritic chest pain, Back: Negative for injury and pain, : Negative for injury, bleeding, discharge, and swelling, MS/Extremity: Negative for injury and deformity, Skin: Negative for injury, rash, and discoloration, Neuro: Negative for headache, weakness, numbness, tingling, and seizure, Psych: Negative for depression, anxiety, suicide ideation, homicidal ideation, and hallucinations, Allergy/Immunology: Negative for hives, rash, and allergies, Endocrine: Negative for neck swelling, polydipsia, polyuria, polyphagia, and marked weight changes, Hematologic/Lymphatic: Negative for swollen nodes, abnormal bleeding, and unusual bruising. Exam: 00:54 Head/Face: Normocephalic, atraumatic. Eyes: Pupils equal round and reactive to light, mh7 extra-ocular motions intact. Lids and lashes normal. Conjunctiva and sclera are non-icteric and not injected. Cornea within normal limits. Periorbital areas with no swelling, redness, or edema. Neck: Trachea midline, no thyromegaly or masses palpated, and no cervical lymphadenopathy. Supple, full range of motion without nuchal rigidity, or vertebral point tenderness. No Meningismus. Chest/axilla: Normal chest wall appearance and motion. Nontender with no deformity. No lesions are appreciated. Cardiovascular: Regular rate and rhythm with a normal S1 and S2. No gallops, murmurs, or rubs. Normal PMI, no JVD. No pulse deficits. Respiratory: Lungs have equal breath sounds bilaterally, clear to auscultation and percussion. No rales, rhonchi or wheezes noted. No increased work of breathing, no retractions or nasal flaring. 00:54 Back: No spinal tenderness. No costovertebral tenderness. Full range of motion. Skin: Warm, dry with normal turgor. Normal color with no rashes, no lesions, and no evidence of cellulitis. MS/ Extremity: Pulses equal, no cyanosis. Neurovascular intact. Full, normal range of motion. Neuro: Awake and alert, GCS 15, oriented to person, place, time, and situation. Cranial nerves II-XII grossly intact. Motor strength 5/5 in all extremities. Sensory grossly intact. Cerebellar exam normal. Normal gait. Psych: Awake, alert, with orientation to person, place and time. Behavior, mood, and affect are within normal limits. 00:54 Constitutional: The patient appears in no acute distress, alert, awake, uncomfortable. 00:54 Abdomen/GI: Inspection: abdomen appears normal, obese Bowel sounds: normal, in all quadrants, Palpation: moderate abdominal tenderness, in the suprapubic area, right lower quadrant and left lower quadrant, Rectal exam: the exam is deferred, because of patient request, Indicators: McBurney's point is not tender, Kovacs's sign is negative, Rovsing's sign is negative, Obturator sign is negative, Psoas sign is negative, Liver: no appreciated palpable abnormalities, Hernia: not appreciated. Vital Signs: 05/02 23:58 BP 143 / 96; Pulse 84; Resp 18; Temp 97.8; Pulse Ox 100% on R/A; mg2 05/03 01:19 BP 139 / 88; Pulse 80; Resp 17; Pulse Ox 100% ; mg2 03:08 BP 119 / 75; Pulse 94; Resp 18; Temp 97.8; Pulse Ox 98% on R/A; mg2 MDM: 02:20 Differential diagnosis: appendicitis, bowel obstruction, non-specific abd pain, mh7 pancreatitis, urinary tract infection. Data reviewed: vital signs, nurses notes, lab test result(s), CBC, electrolytes, urinalysis, radiologic studies, CT scan. Data interpreted: Pulse oximetry: on room air is 100 %. Interpretation: normal. Counseling: I had a detailed discussion with the patient and/or guardian regarding: the historical points, exam findings, and any diagnostic results supporting the discharge/admit diagnosis, lab results, radiology results, the need for further work-up and treatment in the hospital. Response to treatment: the patient's symptoms have mildly improved after treatment. Physician consultation: Raj Mejia MD regarding patient's condition, and will see patient in inpatient room, would like admission per Dr. Gael Lowery MD. 02:23 Patient medically screened. 7 05/02 23:57 Order name: Basic Metabolic Panel; Complete Time: 00:57 mg2 05/02 23:57 Order name: CBC with Diff; Complete Time: 01:55 mg2 05/02 23:57 Order name: Hepatic Function; Complete Time: 00:57 mg2 05/02 23:57 Order name: Lipase; Complete Time: 00:57 mg2 05/03 00:35 Order name: Manual Differential; Complete Time: 01:55 EDMS 05/03 01:51 Order name: Urine Dipstick--Ancillary (enter results) tt3 05/03 00:57 Order name: CT Abd/Pelvis - IV Contrast Only mh7 05/03 01:57 Order name: UDPaul mh7 05/03 02:36 Order name: COVID-19 mg2 05/02 23:57 Order name: Urine Dipstick-Ancillary (obtain specimen); Complete Time: 01:49 mg2 05/02 23:57 Order name: IV Saline Lock; Complete Time: 00:06 mg2 05/02 23:57 Order name: Labs collected and sent; Complete Time: 00:06 mg2 Administered Medications: 00:06 Drug: NS 0.9% 1000 ml Route: IV; Rate: 1000 ml; Site: left forearm; mg2 01:21 Follow up: IV Status: Completed infusion; IV Intake: 1000ml mg2 00:06 Drug: Pepcid 20 mg Route: IVP; Site: left forearm; mg2 01:21 Follow up: Response: No adverse reaction mg2 00:07 Drug: morphine 4 mg Route: IVP; Site: left forearm; mg2 01:21 Follow up: Response: No adverse reaction mg2 00:07 Drug: Zofran (Ondansetron) 4 mg Route: IVP; Site: left forearm; mg2 01:21 Follow up: Response: No adverse reaction mg2 01:53 Drug: NS 0.9% 1000 ml Route: IV; Rate: 1000 ml; Site: left forearm; mg2 03:14 Follow up: Response: No adverse reaction; IV Status: Completed infusion; IV Intake: mg2 1000ml 02:35 Drug: Zosyn 3.375 grams Route: IVPB; Infused Over: 60 mins; Site: left forearm; mg2 03:14 Follow up: IV Status: Completed infusion mg2 02:35 Drug: Dilaudid 1 mg Route: IVP; Site: left forearm; mg2 Disposition: 05/03/20 02:23 Hospitalization ordered by Gael Lowery for Inpatient Admission. Preliminary diagnosis is Acute Appendicitis. - Bed requested for Telemetry/MedSurg (Inpatient). - Status is Inpatient Admission. mg2 - Condition is Stable. - Problem is new. - Symptoms have improved. Signatures: Dispatcher [employer] EDMS Curtis Wasserman RN RN Lupe Vaughn RN RN cg Toney Santos RN RN mg2 Tavon Bacon MD MD mh7 Corrections: (The following items were deleted from the chart) 02:43 02:23 Hospitalization Ordered by Gael Lowery MD for Inpatient Admission. Preliminary cg diagnosis is Acute Appendicitis. Bed requested for Telemetry/MedSurg (Inpatient). Status is Inpatient Admission. Condition is Stable. Problem is new. Symptoms have improved. mh7 03:20 02:43 05/03/2020 02:23 Hospitalization Ordered by Gael Lowery MD for Inpatient mg2 Admission. Preliminary diagnosis is Acute Appendicitis. Bed requested for Telemetry/MedSurg (Inpatient). Status is Inpatient Admission. Condition is Stable. Problem is new. Symptoms have improved. cg
[2020-05-03] MEDS ORDERED: HYDROMORPHONE HCL 1 MG/ML INJ ONE (02:37)
[2020-05-03] MEDS ORDERED: PIPER/TAZO/NS 3.375gm 3.375 GM/100 ML BAG ONE (02:37)
--- NOTE | 2020-05-03 02:42 | P.HP ---
Certification for Inpatient Patient admitted to: Observation With expected LOS: <2 Midnights Patient will require the following post-hospital care: None Practitioner: I am a practitioner with admitting privileges, knowledge of patient current condition, hospital course, and medical plan of care. Services: Services provided to patient in accordance with Admission requirements found in Title 42 Section 412.3 of the Code of Federal Regulations <Maurice Bullock - Last Filed: 05/03/20 02:38> Patient History Date of Service: 05/03/20 Primary Care Provider: None Reason for admission: Acute appendicitis History of Present Illness: 34-year-old male with history of Crohn's disease presents emergency department for lower abdominal pain. Patient reports pain began at approximately noon today and has been progressively getting worse since then. Patient was evaluated in the emergency department and found to have elevated white blood cell count at [address] showing acute appendicitis. Patient with history of Crohn's, General Surgery would like patient admitted to hospitalist service and consulted. Patient started on Zosyn in the emergency department. When I saw the patient in the emergency department is awake, alert, oriented x3. Vital signs stable, patient does not appear septic at this time. Patient be admitted under observation and kept NPO. - Past Medical/Surgical History -: Crohns -: none Psychosocial/ Personal History: Pt lives with - Family History Father -: Cancer Notes: colon ca - Social History Smoking Status: Never smoker Alcohol use: No CD- Drugs: No Caffeine use: No Place of Residence: Home <Maurice Bullock - Last Filed: 05/03/20 02:38> Date of Service: 05/03/20 <Gael Lowery - Last Filed: 05/03/20 18:38> Review of Systems 10-point ROS is otherwise unremarkable Gastrointestinal: Nausea, Abdominal Pain <Maurice Bullock - Last Filed: 05/03/20 02:38> Physical Examination - Physical Exam General: Alert, In no apparent distress HEENT: Atraumatic, PERRLA, Mucous membr. moist/pink Neck: Supple, 2+ carotid pulse no bruit, No LAD Respiratory: Clear to auscultation bilaterally, Normal air movement Cardiovascular: Regular rate/rhythm, Normal S1 S2 Capillary refill: <2 Seconds Gastrointestinal: Normal bowel sounds, No rebound, No guarding, Tenderness (RLQ, Periumbilical) Musculoskeletal: No tenderness Integumentary: No rashes Neurological: Normal gait, Normal speech, Normal strength at 5/5 x4 extr, Normal tone, Normal affect - Studies Laboratory Data (last 24 hrs) 05/03/20 00:05: WBC 15.3 H, Hgb 14.5, Hct 43.6, Plt Count 291 05/03/20 00:05: Sodium 138, Potassium 3.6, BUN 12, Creatinine 0.91, Glucose 99, Total Bilirubin 0.6, AST 19, ALT 26, Alkaline Phosphatase 66, Lipase 94 <Maurice Bullock - Last Filed: 05/03/20 02:38> - Studies Laboratory Data (last 24 hrs) 05/03/20 00:05: WBC 15.3 H, Hgb 14.5, Hct 43.6, Plt Count 291 05/03/20 00:05: Sodium 138, Potassium 3.6, BUN 12, Creatinine 0.91, Glucose 99, Total Bilirubin 0.6, AST 19, ALT 26, Alkaline Phosphatase 66, Lipase 94 <Gael Lowery - Last Filed: 05/03/20 18:38> Assessment and Plan - Plan Assessment Acute appendicitis Crohns Plan Acute appendicitis: NPO, zosyn, PRN pain and nausea meds, surgery consult in place, plan for appendectomy in morning. Crohns: Stable at this time, restart home meds as appropriate Discharge Plan: Home Plan to discharge in: 24 Hours - Advance Directives Does patient have a Living Will: No Does patient have a Durable POA for Healthcare: No - Code Status/Comfort Care Code Status Assessed: Yes Critical Care: No Time Spent Managing Pts Care (In Minutes): 55 <Maurice Bullock - Last Filed: 05/03/20 02:38> - Plan Plan of care discussed with Maurice Bullock, and I agree with the management plan as noted above. Patient taken to the operating room today, consistent with suppurative appendicitis <Gael Lowery - Last Filed: 05/03/20 18:38>
[2020-05-03 03:35] VITALS: BMI 42.7
[2020-05-03] MEDS ORDERED: HYDROMORPHONE HCL 1 MG/ML INJ IV PRN ×2 (03:52→09:21)
[2020-05-03] MEDS ORDERED: ONDANSETRON 4 MG/2 ML VIAL IV PRN (03:52)
[2020-05-03] MEDS: NA CHLORIDE 0.9% 1,000 ML IV SCH ×4 (04:29→23:07)
[2020-05-03] MEDS ORDERED: FENTANYL CITR 100 MCG/2 ML ONE ×2 (07:59→08:40)
[2020-05-03] MEDS ORDERED: propofoL 200 MG/20 ML VIAL IV ONE (07:59)
[2020-05-03] MEDS ORDERED: MIDAZOLAM HCL 2 MG/2 ML INJ ONE (07:59)
[2020-05-03] MEDS ORDERED: ROCURONIUM 50 MG/5 ML VIAL IV ONE (08:00)
[2020-05-03] MEDS ORDERED: LIDOCAINE 2% MPF 5 ML VIAL ONE (08:00)
[2020-05-03] MEDS ORDERED: dexAMETHasone 10 MG/ML VIAL ONE (08:00)
[2020-05-03] MEDS: POTASSIUM CL SA 10 MEQ TAB PO ONE ×2 (08:16→11:42)
--- NOTE | 2020-05-03 08:23 | PREOPCON ---
Date of Consultation: 05/03/2020 Reason: Abdominal pain. History Of Present Illness: Patient is a 34-year-old gentleman who comes in with approximately 20-ho ur history of right-sided abdominal pain associated with nausea, vomiting, anorexia, no diarrhea, occ asional constipation. No blood in his stool. No dysuria or hematuria. No sore throat, runny nose, cough, headaches, or dizziness. No chest pain. No fever or chills. First episode of pain like this . Review of Systems: Otherwise unremarkable. Past Medical History: Crohn disease. Past Surgical History: I and D of perirectal abscess. Allergies: NONE. Social History: Patient does not smoke or drink. Family History: Significant for colon cancer in the father. Physical Examination: Vital Signs: Stable. He is afebrile. General: He is awake, alert, and oriented x3. Head and Neck: Cranial nerves 2 through 12 are gross within normal limits. No neck masses. No JVD. Throat clear. Neck is supple. Chest: Clear. Heart: S1 and S2. Abdomen: Soft, nondistended. Positive bowel sounds. Positive right lower quadrant tenderness with r ebound. No rigidity or guarding. Extremities: Adequately perfused. Nontender. Neuro: Nonfocal. Laboratory Data: White count is 15,000 with a left shift. CT of the abdomen and pelvis reveals unco mplicated acute appendicitis. Assessment: Acute appendicitis. Plan: Admit, n.p.o., IV fluid, IV antibiotic, to the OR for laparoscopic appendectomy, possible open . The patient understands the risks, benefits, and alternatives and agrees to procedure. /MODL Voice ID: [id number] Report ID: [id number]
[2020-05-03] MEDS ORDERED: GLYCOPYRROLATE 0.2 MG/ML SYR ONE (08:48)
[2020-05-03] MEDS ORDERED: KETOROLAC 30 MG/ML INJ ONE (08:48)
[2020-05-03] MEDS ORDERED: NEOSTIGMINE 1 MG/ML -5 ML ONE (08:48)
--- NOTE | 2020-05-03 08:49 | P.OP ---
Coding Specialist: Zee HOOD Preoperative diagnosis: Acute Appendicitis Postoperative diagnosis: Acute Suppurative Appendicitis Primary procedure: Lap Appy Anesthesia: General Estimated blood loss: min Specimen: Appy Findings: as above Complications: None Transferred to: Recovery Room Condition: Good
[2020-05-03] MEDS ORDERED: PIPER/TAZO/NS 3.375gm 3.375 GM/100 ML BAG IVPB SCH (09:00)
[2020-05-03] MEDS ORDERED: Ringers Lactate 0 ML IV ONE (09:16)
--- NOTE | 2020-05-03 10:17 | RAD REPORT ---
EXAM DESCRIPTION: CT - Abdomen Pelvis W Contrast - 05/03/2020 3:40 am ADDENDUM #1 Urgent finding reported to Dr. Bacon at 05/03/2020 2:14 AM DESIGN TECHNICIAN Electronically signed by: Jan Dubois 05/03/2020 2:16 AM DESIGN TECHNICIAN End of Addendum EXAM DESCRIPTION: CT ABDOMEN AND PELVIS WITH CONTRAST CLINICAL HISTORY: ABD PAIN COMPARISON: None Available. TECHNIQUE: CT of the abdomen and pelvis performed following IV administration of iodinated contras t.. FINDINGS: Lung Bases: Minimal dependent atelectasis. Bones: No destructive bone lesions identified. Abdomen: Liver: Hepatomegaly and diffusely decreased density.. No intrahepatic biliary dilatation. Gallbladder: No calcified gallstones. Spleen, Pancreas, and Adrenal Glands: The spleen, pancreas, and adrenal glands are unremarkable. Kidneys: No hydronephrosis or obstructing calculus. Vasculature: The aorta and IVC have normal caliber and position. The portal vein is patent. The pro ximal visceral and renal arteries are patent. Stomach: The stomach and duodenum have normal course. Other: No free intraperitoneal air. Trace fluid. Pelvis: Bladder: Urinary bladder is unremarkable. Bowel: No dilated loops of large or small bowel. Appendix: Dilation of the appendix measuring 1.5 cm with wall thickening. Possible appendicolith. P eriappendiceal inflammatory change. No periappendiceal abscess formation. Pelvis: Prostate is not enlarged. IMPRESSION: 1. Findings compatible with uncomplicated acute appendicitis. 2. Hepatic steatosis. This exam was performed according to our departmental dose-optimization program, which includes autom ated exposure control, adjustment of the mA and/or kV according to patient size and/or use of iterati ve reconstruction technique. Electronically signed by: Jan Dubois 05/03/2020 2:12 AM DESIGN TECHNICIAN Due to temporary technical issues with the PACS/Fluency reporting system, reports are being signed by the in house radiologist without review as a courtesy to ensure prompt reporting. The interpreting r adiologist is fully responsible for the content of the report.
--- NOTE | 2020-05-03 10:23 | OP ---
Date of Procedure: 05/03/2020 Surgeon: Raj Mejia MD Sports Physical Therapist: SANA Portillo. Preoperative Diagnosis: Acute appendicitis. Postoperative Diagnosis: Acute suppurative appendicitis. Procedure Performed: Laparoscopic appendectomy. Estimated Blood Loss: Minimal. Specimen: Appendix. Findings: As above. Anesthesia: General. Complications: None. The patient tolerated the procedure in stable condition, taken to Recovery in good general condition. Procedure In Detail: Patient was brought to the OR and placed in supine position and general anesthe errol begun. The patient was prepped and draped in the usual sterile fashion. Marcaine 0.5% was infilt rated locally. A 15-blade was used to make a 1 cm supraumbilical midline incision. Subcutaneous tis agus was divided. Fascia was identified and divided. #1 Vicryl stay suture was placed. Peritoneal c avity was entered with blunt dissection. A 12-mm trocar was placed into the peritoneal cavity under direct vision. Pneumoperitoneum was established. Two 5 mm trocars were placed, 1 in the suprapubic region, 1 in the left lower quadrant. Laparoscopy revealed acute suppurative appendicitis. Base of the appendix and mesoappendix was identified and ligature used to divide the mesoappendix. Base of t he appendix was identified on the cecum and then Endo-SAMANTHA stapling device was used to divide and then appendix retrieved through the umbilicus via an EndoCatch bag. Findings were consistent with acute suppurative appendicitis. Then right lower quadrant was irrigated. Effluent was clear. No evidence of bleeding or bowel injury appreciated. Subsequently, all trocars were removed under direct vision . Stay sutures were tied to each other to reapproximate the fascial defect. Subcutaneous wound was irrigated. Bleeding was controlled with cautery. 3-0 chromic was used to approximate subcu tissue a nd sergio used to close the skin. Sterile dressing was applied. Patient was awakened and taken to Recovery in good general condition. /MODL Voice ID: [id number] Report ID: [id number]
[2020-05-03] MEDS: PIPER/TAZO/NS 3.375gm 3.375 GM/100 ML BAG IVPB SCH (16:47)
[2020-05-04] MEDS: PIPER/TAZO/NS 3.375gm 3.375 GM/100 ML BAG IVPB SCH ×3 (01:50→16:23)
[2020-05-04 04:08] LABS: Absolute Lymphocytes (CBC) 0.9 K/uL (0.7-4.9); Basophils % 0.1 % (0-1.3); Lymphocytes % 6.6 % (15.3-44.8); MPV 8.6 fL (7.6-11.3); RBC Red Blood Cell Count 4.86 M/uL (4.33-5.43)
[2020-05-04 04:35] LABS: BUN Blood Urea Nitrogen 9 mg/dL (7-18); Bicarbonate 24 mmol/L (21-32); Glucose Level 101 mg/dL (74-106); Magnesium 1.8 mg/dL (1.8-2.4); Phosphorus 2.9 mg/dL (2.5-4.9); Potassium 3.5 mmol/L (3.5-5.1); Sodium Level 141 mmol/L (136-145)
[2020-05-04] MEDS ORDERED: POTASSIUM 25 MEQ EFFERV TAB PO ONE (09:00)
[2020-05-04] MEDS: HYDROCODONE/APAP 7.5/325 MG TAB PO PRN ×2 (11:19→16:23)
[2020-05-04] MEDS: NA CHLORIDE 0.9% 1,000 ML IV SCH ×3 (11:52→22:51)
--- NOTE | 2020-05-04 12:27 | PN ---
Date of Progress Note: 05/04/2020 Subjective: The patient is awake, alert. No complaints. Objective: Vital Stable: Stable. Afebrile. Abdomen: Soft, nondistended, nontender. Positive bowel sounds. Laboratory Data: The patient still has leukocytosis. His white count is 14.1. Assessment: Status post laparoscopic appendectomy for acute suppurative appendicitis. Recommendations: Continue IV antibiotics. Possible discharge in 24-48 hours. /MODL Voice ID: [id number] Report ID: [id number]
--- NOTE | 2020-05-04 12:59 | P.PN ---
Subjective Date of Service: 05/04/20 Primary Care Provider: None Chief Complaint: Acute appendicitis Patient doing well. He currently has no complain. He has been afebrile. He is tolerating feeding. Physical Examination - Vital Signs Temperature: 98.6 F Blood Pressure: 125/71 Pulse: 95 Respirations: 18 Pulse Ox (%): 96 - Physical Exam General: Alert, In no apparent distress HEENT: Mucous membr. moist/pink Neck: Supple, JVD not distended Respiratory: Clear to auscultation bilaterally, Normal air movement Cardiovascular: No edema, Regular rate/rhythm, Normal S1 S2 Gastrointestinal: Normal bowel sounds, Non-distended Musculoskeletal: No swelling, No erythema Integumentary: No rashes Neurological: Normal speech, Normal strength at 5/5 x4 extr Assessment And Plan - Current Problems (Diagnosis) (1) Acute appendicitis Current Visit: Yes Status: Acute (2) Crohn's disease Current Visit: Yes Status: Acute - Plan Case discussed with Dr. Mejia. Will need to continue IV antibiotics for 1 more day. Feeding per general surgery. Continue IV hydration. Pain management as needed.
[2020-05-04] MEDS: ACETAMINOPHEN 500 MG TAB PO PRN (21:46)
[2020-05-04] MEDS ORDERED: ACETAMINOPHEN 500 MG TAB PO ONE (23:42)
[2020-05-05] MEDS: PIPER/TAZO/NS 3.375gm 3.375 GM/100 ML BAG IVPB SCH ×3 (00:11→17:08)
[2020-05-05] MEDS: NA CHLORIDE 0.9% 1,000 ML IV SCH ×3 (05:24→23:50)
[2020-05-05 05:49] LABS: BUN Blood Urea Nitrogen 8 mg/dL (7-18); Bicarbonate 25 mmol/L (21-32); Glucose Level 112 mg/dL (74-106); Potassium 3.4 mmol/L (3.5-5.1); Sodium Level 139 mmol/L (136-145)
[2020-05-05] MEDS ORDERED: POTASSIUM 25 MEQ EFFERV TAB PO ONE (05:57)
[2020-05-05 06:15] LABS: Absolute Lymphocytes (CBC) 0.7 K/uL (0.7-4.9); Basophils % 0.4 % (0-1.3); Hematocrit 37.7 % (39.6-49.0); Lymphocytes % 6.2 % (15.3-44.8); MPV 8.1 fL (7.6-11.3); RBC Red Blood Cell Count 4.54 M/uL (4.33-5.43)
--- NOTE | 2020-05-05 10:58 | PN ---
Date of Progress Note: 05/05/2020 Subjective: The patient is awake and alert. No complaint. Objective: Vital Signs: Stable. T-max 101.5. Abdomen: The patient also had some diarrhea, and which has been sent for C diff. Abdomen is benign. Laboratory Data: White count is normal. There is no left shift. Assessment: Status post laparoscopic appendectomy, diarrhea, and fever. Recommendations: Continue IV antibiotics. At this time, the patient had fever, check his C diff. I f negative and patient's fever subsides, then he can prior be discharged home on oral antibiotics in the next 24-48 hours. /MODL Voice ID: [id number] Report ID: [id number]
[2020-05-05] MEDS: ACETAMINOPHEN 500 MG TAB PO PRN ×3 (12:07→23:48)
[2020-05-05] MEDS: ONDANSETRON 4 MG/2 ML VIAL IV PRN ×2 (12:07→19:19)
[2020-05-05 13:20] LABS: C.diff Antigen/Toxin Ag neg : Tox neg (NEG : NEG)
[2020-05-05] MEDS ORDERED: POTASSIUM CL SA 10 MEQ TAB PO ONE (14:00)
--- NOTE | 2020-05-05 14:19 | P.PN ---
Subjective Date of Service: 05/05/20 Primary Care Provider: None Chief Complaint: Acute appendicitis Patient had a fever early this morning. He is also having diarrhea. Otherwise no other complaint. He denies any abdominal pain. Physical Examination - Vital Signs Temperature: 99.1 F Blood Pressure: 137/90 Pulse: 101 Respirations: 20 Pulse Ox (%): 95 - Physical Exam General: Alert, In no apparent distress HEENT: Mucous membr. moist/pink Respiratory: Clear to auscultation bilaterally, Normal air movement Cardiovascular: No edema, Regular rate/rhythm, Normal S1 S2 Gastrointestinal: Normal bowel sounds, Soft and benign, Non-distended, No tenderness Musculoskeletal: No swelling, No erythema Integumentary: No rashes Assessment And Plan - Current Problems (Diagnosis) (1) Acute appendicitis Current Visit: Yes Status: Acute (2) Crohn's disease Current Visit: Yes Status: Acute - Plan Continue IV Zosyn. Stool for C. diff ordered. Pain management as needed. Monitor and continue treatment as inpatient until no fever Feeding per general surgery. Continue IV hydration.
[2020-05-05] MEDS ORDERED: ACETAMINOPHEN 500 MG TAB PO ONE (23:15)
[2020-05-05] MEDS ORDERED: IBUPROFEN 200 MG TAB PO ONE (23:29)
[2020-05-06] MEDS: PIPER/TAZO/NS 3.375gm 3.375 GM/100 ML BAG IVPB SCH ×3 (01:16→19:07)
[2020-05-06] MEDS ORDERED: POTASSIUM CL SA 10 MEQ TAB PO ONE (07:56)
[2020-05-06 08:47] LABS: Absolute Lymphocytes (CBC) 0.5 K/uL (0.7-4.9); Basophils % 0.5 % (0-1.3); Hematocrit 37.2 % (39.6-49.0); Lymphocytes % 6.1 % (15.3-44.8); MPV 8.2 fL (7.6-11.3); RBC Red Blood Cell Count 4.49 M/uL (4.33-5.43)
--- NOTE | 2020-05-06 10:58 | PN ---
DICTATION ENDS HERE. /MODL Voice ID: [id number] Report ID: [id number]
--- NOTE | 2020-05-06 11:05 | PN ---
Date of Progress Note: 05/06/2020 Subjective: The patient is awake, alert, no complaint. Diarrhea is better. C diff was negative. Objective: Vital Signs: Stable. He is still having low-grade temperature as high as 99.9. Abdomen: Soft, nondistended, nontender. Positive bowel sounds. Extremities: Dressing is clean, dry, and intact. Assessment: Laparoscopic appendectomy with a low grade temperature. Recommendations: We will continue IV antibiotics today and possible discharge tomorrow and make sure that the patient is afebrile before discharge. /MODL Voice ID: [id number] Report ID: [id number]
--- NOTE | 2020-05-06 11:22 | P.PN ---
Subjective Date of Service: 05/06/20 Primary Care Provider: None Chief Complaint: Acute appendicitis Patient had a fever last night. He states the diarrhea has improved and having occasional loose stools. C. diff is negative. He denies any abdominal pain. Physical Examination - Vital Signs Temperature: 99 F Blood Pressure: 130/68 Pulse: 84 Respirations: 20 Pulse Ox (%): 94 - Physical Exam General: Alert, In no apparent distress Respiratory: Clear to auscultation bilaterally, Normal air movement Cardiovascular: No edema, Regular rate/rhythm, Normal S1 S2 Gastrointestinal: Normal bowel sounds, Soft and benign, Non-distended, No tenderness Musculoskeletal: No swelling, No tenderness Integumentary: No rashes Assessment And Plan - Current Problems (Diagnosis) (1) Acute appendicitis Current Visit: Yes Status: Acute (2) Crohn's disease Current Visit: Yes Status: Acute - Plan Continue IV antibiotics for more day Pain management as needed. Diet per general surgeon Monitor and continue treatment as inpatient until no fever for 24 hrs. Discontinue IV fluid. Increase activity level. Encourage ambulation.
[2020-05-06] MEDS: ONDANSETRON 4 MG/2 ML VIAL IV PRN ×3 (12:46→20:21)
--- NOTE | 2020-05-06 19:27 | RAD REPORT ---
EXAM DESCRIPTION: CR - SMALL BOWEL FOLLOW THROUGH - 05/06/2020 7:08 pm CLINICAL HISTORY: Crohns disease with nausea and vomiting Abdominal pain COMPARISON: Abdomen Pelvis W Contrast dated 05/03/2020 FINDINGS: Supervisor Felling Bucking image demonstrates multiple dilated small bowel loops most compatible with a mechani donny obstruction. Distention of the gastric bubble is seen with slow passage ingested contrast into the small intestine . The small intestine remains dilated and contrast was retained in the small intestine proximally at 4 hours, most compatible with a mechanical small-bowel obstruction. A follow-up radiograph will be ob tained in the morning for further assessment. No fluoroscopy was performed. Total images acquired: 17 IMPRESSION: Moderate proximal mechanical small-bowel obstruction is present. A follow-up radiographs will be obtained in the morning for further evaluation.
[2020-05-07] MEDS: PIPER/TAZO/NS 3.375gm 3.375 GM/100 ML BAG IVPB SCH ×2 (01:11→09:00)
[2020-05-07 05:10] LABS: BUN Blood Urea Nitrogen 10 mg/dL (7-18); Bicarbonate 26 mmol/L (21-32); Glucose Level 98 mg/dL (74-106); Potassium 3.4 mmol/L (3.5-5.1); Sodium Level 139 mmol/L (136-145)
--- NOTE | 2020-05-07 08:39 | RAD REPORT ---
EXAM DESCRIPTION: RAD - Abdomen 1 View (KUB) - 05/07/2020 6:15 am CLINICAL HISTORY: F/U SMALL BOWEL SERIES Pain COMPARISON: Abdomen Pelvis W Contrast dated 05/03/2020; SMALL BOWEL FOLLOW THROUGH dated 0 FINDINGS: Examination was performed as followup to yesterday's small bowel series. Some contrast is seen in the colon on today's study which suggests overnight movement although the majority of the con trast remains within significantly dilated small bowel loops. Small bowel obstruction remains favored over ileus.
[2020-05-07] MEDS ORDERED: POTASSIUM CL SA 10 MEQ TAB PO ONE (09:00)
--- NOTE | 2020-05-07 10:12 | PN ---
Date of Progress Note: 05/07/2020 Subjective: The patient yesterday had some nausea and vomiting. Had GI consultation and a small bow el series was ordered, which showed initially a small bowel obstruction but today the followup x-ray shows there is some contrast into the colon. So it may be an ileus. No free air. No other evidence of any problems. The patient is awake and alert, feel somewhat distended and nauseous. NG tube has been ordered and has not been placed yet. His bowels are stable. Afebrile. He had a white count y esterday which was normal. There was no left shift. His abdomen today is slightly distended with hy poactive bowel sounds but no peritonitis. Minimal tenderness near the incision site. Assessment: Status post laparoscopic appendectomy with a postop ileus versus partial obstruction in a patient with Crohn disease and there may be an exacerbation of Crohn disease as well. Recommendation: Family and GI service believe the patient should be transferred to tertiary care [facility] because of inflammatory bowel disease, teams that they have and colorectal surgeon availability , which I agree and therefore patient will be transferred. Continue current treatment as ordered. /MODL Voice ID: [id number] Report ID: [id number]
[2020-05-07 10:17] VITALS: O2SAT 95
[2020-05-07 11:54] VITALS: BP 139/86; TEMP 98
--- NOTE | 2020-05-07 14:12 | P.DS ---
Admission Date: 05/03/20 Discharge Date: 05/07/20 Primary Care Provider: None Disposition: TRANSFER TO [facility] Discharge Condition: FAIR Reason for Admission: Acute appendicitis Consultations: General Surgery - Problems (1) Acute appendicitis Current Visit: Yes Status: Acute (2) Crohn's disease Current Visit: Yes Status: Acute (3) Small bowel obstruction Current Visit: Yes Status: Acute Brief History of Present Illness: 34-year-old gentleman with a history Crohn's disease presented to the emergency department with a complaint of abdominal pain. Patient noted to have leukocytosis. CT abdomen and pelvis done suggested acute appendicitis. General surgeon Dr. Mejia was contacted who recommended hospitalization for him to evaluate. Patient was started on IV Zosyn and admitted for further management. Hospital Course: Patient admitted to the medical floor and continued on IV Zosyn. He was seen and evaluated by Dr. Mejia. Laparoscopic appendectomy was performed, postop diagnosis was suppurative appendicitis. Dr. Mejia recommend at least 24 hr inpatient stay postop for IV antibiotics. Patient developed fever for 2 days. He did not tolerate his diet and started vomiting yesterday. Leukocytosis resolved. GI-Dr. Quintanilla was contacted who recommended small-bowel series. Small bowel series done demonstrated small bowel obstruction. Dr. Quintanilla recommended transfer to a tertiary center for him to be managed by inflammatory bowel disease team and colorectal surgeon. Patient and spouse prefered that he is transferred to [facility] to be managed by his clinical nutrition manager Dr. Childress. Patient considered clinically stable for transfer. Patient accepted for transfer. Vital Signs/Physical Exam: Temp Pulse Resp BP Pulse Ox 98 F 81 81 H 139/86 97 05/07/20 11:52 05/07/20 11:52 05/07/20 11:52 05/07/20 11:52 05/07/20 11:52 General: Alert, In no apparent distress HEENT: Mucous membr. moist/pink Respiratory: Clear to auscultation bilaterally, Normal air movement Cardiovascular: No edema, Regular rate/rhythm, Normal S1 S2 Gastrointestinal: Normal bowel sounds, Other (Obese abdomen) Musculoskeletal: No swelling, No tenderness Integumentary: No rashes, No erythema Laboratory Data at Discharge: WBC 8.6 K/uL (4.3-10.9) D 05/06/20 08:16 Hgb 12.7 g/dL (13.6-17.9) L 05/06/20 08:16 Hct 37.2 % (39.6-49.0) L 05/06/20 08:16 Plt Count 260 K/uL (152-406) 05/06/20 08:16 Sodium 139 mmol/L (136-145) 05/07/20 04:33 Potassium 3.7 mmol/L (3.5-5.1) 05/07/20 13:00 BUN 10 mg/dL (7-18) 05/07/20 04:33 Creatinine 0.75 mg/dL (0.55-1.3) 05/07/20 04:33 Glucose 98 mg/dL (74-106) 05/07/20 04:33 Phosphorus 2.9 mg/dL (2.5-4.9) 05/04/20 03:23 Magnesium 1.8 mg/dL (1.8-2.4) 05/04/20 03:23 Total Bilirubin 0.6 mg/dL (0.2-1.0) 05/03/20 00:05 AST 19 U/L (15-37) 05/03/20 00:05 ALT 26 U/L (12-78) 05/03/20 00:05 Alkaline Phosphatase 66 U/L (45-117) 05/03/20 00:05 Lipase 94 U/L (73-393) 05/03/20 00:05 Home Medications: NK [No Home Meds] 05/03/20 Followup: NONE,NONE [Primary Care Provider] - Time spent managing pt's care (in minutes): 42
== END 2020-05-07 16:15 | disposition short-term general hospital (02) | DRG 342 ==
LOC: ER 23:41 → ERHOLD 05-03 02:37 → 4TH 05-03 03:10 → OBSVTOIN 05-03 12:17 → 2ND 05-03 15:20
PROVIDERS: ADMIT Hospitalist; ATTEND Internal Medicine
PROC: 0DTJ4ZZ Resection of Appendix, Percutaneous Endoscopic Approach (ICD-10-PCS; principal; 2020-05-03 13:00)
DX: K35.80 Unspecified acute appendicitis (principal); K50.90 Crohn's disease, unspecified, without complications; K56.600 Partial intestinal obstruction, unspecified as to cause; Z20.828 Contact with and (suspected) exposure to other viral communicable diseases
CPT/HCPCS: 36415; 74018; 74177; 74248; 80048; 80076; 83605; 83690; 83735; 84100; 84132; 85025; 87324; 87449; 88304; 94010; 96361; 96365; 96375; 99285; G0378; J1100; J1170; J2250; J2405; J2543; J2704; J2710; J3010; J7030; J7120; Q9967; U0003

== ENCOUNTER 2024-07-16 22:38 | Observation (INO) | payer BC ==
[2024-07-16] MEDS ORDERED: NA CHLORIDE 0.9% 1,000 ML ONE (23:31)
[2024-07-16] MEDS ORDERED: MORPHINE 4 MG/ML SYR ONE (23:31)
[2024-07-16] MEDS ORDERED: ONDANSETRON 4 MG/2 ML VIAL ONE (23:31)
[2024-07-17 00:06] LABS: Absolute Basophils 0.1 K/uL (0-0.5); Absolute Eosinophils 0.1 K/uL (0-0.5); Absolute Lymphocytes (CBC) 0.9 K/uL (0.7-4.9); Absolute Monocytes 0.6 K/uL (0.1-1.3); Absolute Neutrophil 8.5 K/uL (1.8-8.0); Basophils % 1.3 % (0-1.3); Eosinophils % 1.2 % (0-4.4); Hemoglobin 15.6 g/dL (13.6-17.9); Lymphocytes % 8.9 % (15.3-44.8); MCH 29.3 pg (27.0-35.0); MCV 86.3 fL (80-100); MPV 8.2 fL (7.6-11.3); Monocytes % 5.6 % (3.3-12.3); Platelets 320 thou/uL (152-406); RBC Red Blood Cell Count 5.33 M/uL (4.33-5.43); Red Cell Distribution Width 14.4 % (12.1-15.2)
[2024-07-17 00:15] LABS: Albumin 3.9 g/dL (3.4-5.0); Albumin/Globulin Ratio 0.8 (1.1-1.8); Anion Gap 11.6 mEq/L (5.0-15.0); Bilirubin Total 0.6 mg/dL (0.2-1.0); Globulin 4.6 g/dL (2.3-3.5); Potassium 3.6 mEq/L (3.5-5.1); Protein, Total 8.5 g/dL (6.4-8.2)
--- NOTE | 2024-07-17 01:02 | RAD REPORT ---
CLINICAL HISTORY: Abdominal pain. COMPARISON: None. 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 Gallbladder contains a tiny questionable gallstone. There is no wall thi ckening or pericholecystic fluid. There is a reported positive sonographic Kovacs's sign. Common bile duct measures 5 mm. IMPRESSION: Minimal cholelithiasis with a positive sonographic Kovacs's sign. Electronically signed by: Shan Morris MD 07/17/2024 12:59 AM CALENDER ROLL PRESS OPERATOR RP Due to temporary technical issues with the PACS/Power scribe reporting system, reports are being signed by the in-house radiologist without review as a courtesy to ensure prompt reporting the interpreting radiologist is fully responsible for the content of the report. Transcribed Date/Time: 07/17/2024 1:02 AM
[2024-07-17] MEDS ORDERED: HYDROMORPHONE HCL 0.5 MG/0.5 ML INJ ONE (01:05)
--- NOTE | 2024-07-17 01:36 | RAD REPORT ---
EXAM: CT Abdomen and Pelvis With Intravenous Contrast CLINICAL HISTORY: ABD PAIN TECHNIQUE: Axial computed tomography images of the abdomen and pelvis with intravenous contrast. Sagittal and coronal reformatted images were created and reviewed. This CT exam was performed using one or more of the following dose reduction techniques: automated exposure control, adjustment of the mA a nd/or kV according to patient size, and/or use of iterative reconstruction technique. COMPARISON: CT Abdomen Pelvis dated 05/03/2020 FINDINGS: Lung bases: Bilateral subsegmental atelectasis/pleural parenchymal scar. ABDOMEN: Liver: Unremarkable. No mass. Gallbladder and bile ducts: Gallstones within a mildly distended and minimally thickened gallbladde r. No ductal dilation. Pancreas: Unremarkable. No mass. No ductal dilation. Spleen: Unremarkable. No splenomegaly. Adrenals: Unremarkable. No mass. Kidneys and ureters: Unremarkable. Normal renal cortical enhancement. No calculi. No hydronephros is. Stomach and bowel: Intramural fat within portions of the small and large bowel which can be seen in the setting of prior inflammation. No mucosal thickening. PELVIS: Appendix: Interval appendectomy. Bladder: The urinary bladder is decompressed. Reproductive: Unremarkable as visualized. ABDOMEN and PELVIS: Intraperitoneal space: Unremarkable. No free air. No significant fluid collection. Bones/joints: No acute fracture. No dislocation. Soft tissues: Unremarkable. Vasculature: Unremarkable. No abdominal aortic aneurysm. Lymph nodes: Unremarkable. No enlarged lymph nodes. IMPRESSION: 1. Findings which may be related to early acute cholecystitis. 2. Other findings as above. Electronically signed by: Charles Joseph MD 07/17/2024 01:33 AM [facility] Due to temporary technical issues with the PACS/Invrep reporting system, reports are being jil d by the in-house radiologist without review as a courtesy to ensure prompt reporting the interpreting radiologist is fully responsible for the content of the report. Transcribed Date/Time: 07/17/2024 1:36 AM
[2024-07-17] MEDS ORDERED: MAGNES/ALUMIN/SIMET 30ML UCUP ONE (02:39)
[2024-07-17] MEDS ORDERED: LIDOCAINE VISCOUS 2% 10ML ORAL SOLN ONE (02:40)
--- NOTE | 2024-07-17 02:50 | ER ---
Nurse's Notes [facility] Name: Jan Amaya Age: 38 yrs Sex: Male : 1985 Arrival Date: 07/16/2024 Time: 22:38 Bed 20 Private MD: Diagnosis: Acute cholecystitis Presentation: 07/16 22:49 Chief complaint: Patient states: headache, nausea, abdominal pain, and constipation. ha1 22:49 Coronavirus screen: Client denies travel out of the [place] in the last 14 days. Ebola ha1 Screen: No symptoms or risks identified at this time. Initial Sepsis Screen: Does the patient meet any 2 criteria? No. Patient's initial sepsis screen is negative. Does the patient have a suspected source of infection? No. Patient's initial sepsis screen is negative. Risk Assessment: Do you want to hurt yourself or someone else? Patient reports no desire to harm self or others. Onset of symptoms was July 16, 2024. 22:49 Method Of Arrival: Ambulatory ha1 22:49 Acuity: HIRA 3 ha1 Triage Assessment: 22:49 Headache History: The patient has had previous headaches and this one is similar to 1 previous episodes. General: Appears uncomfortable, Behavior is cooperative. Pain: Complains of pain in abdomen Pain radiates to right leg and left leg Pain currently is 10 out of 10 on a pain scale. Quality of pain is described as crampy, Pain began suddenly, Also complains of constipation, nausea. Neuro: Level of Consciousness is awake, alert, obeys commands, Oriented to person, place, time, situation. Cardiovascular: Capillary refill < 3 seconds Patient's skin is warm and dry. Respiratory: Airway is patent Respiratory effort is even, unlabored, Respiratory pattern is regular, symmetrical. GI: Abdomen is round non-distended, obese. Musculoskeletal: Circulation, motion, and sensation intact. Range of motion: intact in all extremities. Historical: - Allergies: 23:17 No Known Allergies; ha1 - PMHx: 23:17 chron's disease; ha1 - PSHx: 23:17 Appendectomy; ha1 - Immunization history:: Adult Immunizations up to date. - Infectious Disease History:: Denies. - Social history:: Smoking status: Patient denies any tobacco usage or history of. Screenin:50 [facility] ED Fall Risk Assessment (Adult) History of falling in the last 3 months, rg5 including since admission No falls in past 3 months (0 pts) Confusion or Disorientation No (0 pts) Intoxicated or Sedated No (0 pts) Impaired Gait No (0 pts) Mobility Assist Device Used No (0 pt) Altered Elimination No (0 pt) Score/Fall Risk Level 0 - 2 = Low Risk Oriented to surroundings, Maintained a safe environment, Hourly rounding (assess needs \T\ fall precautionary measures) done. 22:50 Abuse screen: Denies threats or abuse. Nutritional screening: No deficits noted. rg5 Tuberculosis screening: No symptoms or risk factors identified. Assessment: 22:50 Pain: Complains of pain in abdomen Pain currently is 10 out of 10 on a pain scale. rg5 Quality of pain is described as aching. 23:30 Reassessment: No changes from previously documented assessment. Patient and/or family rg5 updated on plan of care and expected duration. Pain level reassessed. Patient is alert, oriented x 3, equal unlabored respirations, skin warm/dry/pink. 07/17 00:25 Reassessment: No changes from previously documented assessment. Patient and/or family rg5 updated on plan of care and expected duration. Pain level reassessed. Patient is alert, oriented x 3, equal unlabored respirations, skin warm/dry/pink. 01:30 Reassessment: No changes from previously documented assessment. Patient and/or family rg5 updated on plan of care and expected duration. Pain level reassessed. Patient is alert, oriented x 3, equal unlabored respirations, skin warm/dry/pink. 02:30 Reassessment: Patient and/or family updated on plan of care and expected duration. Pain rg5 level reassessed. Patient is alert, oriented x 3, equal unlabored respirations, skin warm/dry/pink. Patient states symptoms have improved. 03:30 Reassessment: Patient and/or family updated on plan of care and expected duration. Pain rg5 level reassessed. Patient is alert, oriented x 3, equal unlabored respirations, skin warm/dry/pink. Patient states symptoms have improved. 04:38 Reassessment: Patient and/or family updated on plan of care and expected duration. Pain rg5 level reassessed. Patient is alert, oriented x 3, equal unlabored respirations, skin warm/dry/pink. Vital Signs: 07/16 22:49 BP 161 / 111; Pulse 71; Resp 19 S; Temp 97.8(T); Pulse Ox 98% on R/A; Weight 134.72 kg; ha1 Height 5 ft. 8 in. ; Pain 10/10; 23:30 BP 144 / 99; Pulse 73; Resp 18; Temp 98(O); Pulse Ox 96% on R/A; Pain 9/10; rg5 07/17 00:27 BP 144 / 98; Pulse 75; Resp 17; Pulse Ox 98% on R/A; Pain 9/10; rg5 01:25 BP 155 / 99; Pulse 79; Resp 18; Pulse Ox 97% on R/A; Pain 7/10; rg5 02:25 BP 149 / 98; Pulse 78; Resp 18; Pulse Ox 78% on R/A; Pain 5/10; rg5 03:30 BP 149 / 90; Pulse 74; Resp 18; Pulse Ox 94% on R/A; rg5 04:42 BP 157 / 98; Pulse 71; Resp 18; Pulse Ox 99% ; Pain 9/10; rg5 07/16 22:49 Body Mass Index 45.16 (134.72 kg, 172.72 cm) ha1 07/16 22:49 Pain Scale: Adult ha1 23:30 Pain Scale: Adult rg5 07/17 00:27 Pain Scale: Adult rg5 01:25 Pain Scale: Adult rg5 02:25 Pain Scale: Adult rg5 04:42 Pain Scale: Adult rg5 Ray[place]ham Coma Score: 02:38 Eye Response: spontaneous(4). Motor Response: obeys commands(6). Verbal Response: dr5 oriented(5). Total: 15. ED Course: 07/16 22:40 Patient arrived in ED. jj6 22:42 Junior Crisost[facility]C [facility]. dr5 22:42 Yuri Townsend MD is Attending Physician. dr5 22:50 Ty Haas RN is Primary Nurse. rg5 22:50 Patient has correct armband on for positive identification. Door closed. Noise rg5 minimized. Warm blanket given. 22:50 No provider procedures requiring assistance completed. Inserted saline lock: 20 gauge rg5 in right forearm, using aseptic technique. Blood collected. Flushed with 10 mL NS. 22:51 Arm band placed on right wrist. rg5 23:17 Triage completed. ha1 07/17 00:11 Abdomen Limited US: RUQ US r/o michelle In Process Unspecified. EDMS 01:03 CT Abd/Pelvis - IV Contrast Only In Process Unspecified. EDMS 02:49 Andre Kelly MD is Hospitalizing Provider. dr5 03:42 Patient admitted, IV remains in place. rg5 03:44 Provided Education on: needs for admit. rg5 Administered Medications: 07/16 23:20 Drug: Ondansetron IVP 4 mg IVP once; over 2 minutes Route: IVP; Site: right forearm; rg5 07/17 03:05 Follow up: Response: No adverse reaction; Pain is decreased rg5 07/16 23:20 Drug: NS 0.9% IV 1000 ml IV at 1000 ml once; to be given as a bolus over 60 minutes rg5 Route: IV; Rate: 1000 ml; Site: right forearm; 07/17 03:05 Follow up: IV Status: Completed infusion; IV Intake: 1000ml rg5 07/16 23:25 Drug: morphine IVP or IV 4 mg IVP once over 4 mins Route: IVP; Infused Over: 4 mins; rg5 Site: right forearm; 07/17 03:06 Follow up: Response: No adverse reaction; Pain is decreased rg5 01:09 Drug: HYDROmorphone IVP 0.5 mg IVP once Route: IVP; Site: right forearm; rg5 03:05 Follow up: Response: No adverse reaction; Pain is decreased rg5 02:41 Drug: GI Cocktail without - (Maalox PO 30 ml, Lidocaine Mucous Membrane 2 % 15 rg5 ml) PO once Route: PO; 03:05 Follow up: Response: No adverse reaction rg5 03:13 Drug: NS 0.9% IV 1000 ml IV at 125 ml/hr once; to be given as a bolus over 60 minutes rg5 Route: IV; Rate: 125 ml/hr; Site: right forearm; 09:30 Follow up: IV Status: Infusion continued upon admission; IV Intake: 800ml kb3 03:13 Drug: Piperacillin-Tazobactam IVPB 3.375 grams IVPB once over 60 mins; (mix in NS 100 rg5 mL) Route: IVPB; Infused Over: 60 mins; Site: right forearm; 04:15 Follow up: IV Status: Completed infusion; IV Intake: 100ml rg5 Medication: 07/16 22:50 VIS not applicable for this client. rg5 Intake: 07/17 03:05 IV: 1000ml; Total: 1000ml. rg5 04:15 IV: 100ml; Total: 1100ml. rg5 09:30 IV: 800ml; Total: 1900ml. kb3 Outcome: 02:49 Decision to Hospitalize by Provider. dr5 04:41 Admitted to ER Hold. Please see [facility] for further documentation. rg5 04:41 Condition: stable 04:41 Instructed on the need for admit, 09:18 Patient left the ED. db Signatures: Dispatcher [employer] EDMS Cheryl Segalj6 Marry Bernstein, RN RN ha1 Sherrell Cat RN RN kb3 Chayito Hudson RN RN db Ty Haas RN RN rg5 Junior Crisostomo, LIVESTOCK COUNTER-C LIVESTOCK COUNTER-[facility]5
--- NOTE | 2024-07-17 02:50 | EDPHYS ---
Physician Documentation [facility] Name: Jan Amaya Age: 38 yrs Sex: Male : 1985 Arrival Date: 07/16/2024 Time: 22:38 Bed 20 Private MD: ED Physician Yuri Townsend HPI: 07/17 02:38 This 38 yrs old Black Male presents to ER via Ambulatory with complaints of Headache, dr5 Nausea/Vomiting. 02:38 Patient is a 38-year-old male with history of Crohn's disease coming in with right dr5 upper quadrant abdominal pain this been going on since this afternoon. Patient reports he has had an appendectomy in the past. Patient reports pain got worse after eating 2 tacos at [employer].. Historical: - Allergies: 07/16 23:17 No Known Allergies; ha1 - PMHx: 23:17 chron's disease; ha1 - PSHx: 23:17 Appendectomy; ha1 - Immunization history:: Adult Immunizations up to date. - Infectious Disease History:: Denies. - Social history:: Smoking status: Patient denies any tobacco usage or history of. ROS: 07/17 02:38 Constitutional: as per hpi dr5 Exam: 02:38 Constitutional: This is a well developed, well nourished patient who is awake, alert, dr5 and in no acute distress. Head/Face: Normocephalic, atraumatic. Eyes: Pupils equal round and reactive to light, extra-ocular motions intact. Lids and lashes normal. Conjunctiva and sclera are non-icteric and not injected. Cornea within normal limits. Periorbital areas with no swelling, redness, or edema. Neck: Trachea midline, no thyromegaly or masses palpated, and no cervical lymphadenopathy. Supple, full range of motion without nuchal rigidity, or vertebral point tenderness. No Meningismus. Chest/axilla: Normal chest wall appearance and motion. Nontender with no deformity. No lesions are appreciated. Cardiovascular: Regular rate and rhythm with a normal S1 and S2. Normal PMI, no JVD. No pulse deficits. Respiratory: Lungs have equal breath sounds bilaterally, clear to auscultation. No rales, rhonchi or wheezes noted. No increased work of breathing, no retractions or nasal flaring. 02:38 Back: No spinal tenderness. No costovertebral tenderness. Full range of motion. Skin: Warm, dry with normal turgor. Normal color with no rashes, no lesions, and no evidence of cellulitis. Neuro: Awake and alert, GCS 15, oriented to person, place, time, and situation. Cranial nerves II-XII grossly intact. Motor strength 5/5 in all extremities. Sensory grossly intact. Cerebellar exam normal. Normal gait. 02:38 Abdomen/GI: Inspection: abdomen appears normal, Bowel sounds: normal, Palpation: moderate abdominal tenderness, in the right upper quadrant, Vital Signs: 07/16 22:49 BP 161 / 111; Pulse 71; Resp 19 S; Temp 97.8(T); Pulse Ox 98% on R/A; Weight 134.72 kg; ha1 Height 5 ft. 8 in. ; Pain 10/10; 23:30 BP 144 / 99; Pulse 73; Resp 18; Temp 98(O); Pulse Ox 96% on R/A; Pain 9/10; rg5 07/17 00:27 BP 144 / 98; Pulse 75; Resp 17; Pulse Ox 98% on R/A; Pain 9/10; rg5 01:25 BP 155 / 99; Pulse 79; Resp 18; Pulse Ox 97% on R/A; Pain 7/10; rg5 02:25 BP 149 / 98; Pulse 78; Resp 18; Pulse Ox 78% on R/A; Pain 5/10; rg5 03:30 BP 149 / 90; Pulse 74; Resp 18; Pulse Ox 94% on R/A; rg5 04:42 BP 157 / 98; Pulse 71; Resp 18; Pulse Ox 99% ; Pain 9/10; rg5 07/16 22:49 Body Mass Index 45.16 (134.72 kg, 172.72 cm) ha1 07/16 22:49 Pain Scale: Adult ha1 23:30 Pain Scale: Adult rg5 07/17 00:27 Pain Scale: Adult rg5 01:25 Pain Scale: Adult rg5 02:25 Pain Scale: Adult rg5 04:42 Pain Scale: Adult rg5 Devendra Coma Score: 02:38 Eye Response: spontaneous(4). Motor Response: obeys commands(6). Verbal Response: dr5 oriented(5). Total: 15. MDM: 07/16 22:43 Medical Screening Exam initiated dr5 07/17 02:38 Differential diagnosis: Gastritis, cholecystitis, cholelithiasis. Data reviewed: vital dr5 signs, nurses notes, lab test result(s), radiologic studies, CT scan, ultrasound. I considered the following discharge prescriptions or medication management in the emergency department Medications were administered in the Emergency Department. See AUG. 02:50 Care significantly affected by the following chronic conditions: Crohns Disease. Care dr5 significantly affected by the following Social Determinants of Health: Poor access to healthcare and/or lack of insurance, Poor access to transportation, Problems related to employment. Counseling: I had a detailed discussion with the patient and/or guardian regarding the historical points, exam findings, and any diagnostic results supporting the discharge/admit diagnosis, the presence of at least one elevated blood pressure reading (>120/80) during this emergency department visit, the need for further work-up and treatment in the hospital. ED course: Discussed case with Dr. Pimentel. Will admit patient for early cholecystitis. Will give Zosyn and IV fluid. Roberto. 07/16 23:11 Order name: CBC with Diff; Complete Time: 00:48 [facility] 07/16 23:11 Order name: CMP; Complete Time: 00:48 [facility] 07/16 23:11 Order name: Lipase; Complete Time: 00:48 [facility] 07/17 05:49 Order name: Urinalysis w/ reflexes [facility] 07/17 05:52 Order name: Urinalysis w/ reflexes [facility] 07/17 05:52 Order name: CBC with Automated Diff [facility] 07/17 05:52 Order name: CBC with Automated Diff [facility] 07/17 05:52 Order name: Comprehensive Metabolic Panel [facility] 07/17 05:52 Order name: Comprehensive Metabolic Panel [facility] 07/16 23:11 Order name: Abdomen Limited US: RUQ US r/o michelle; Complete Time: 01:46 [facility] 07/16 23:11 Order name: CT Abd/Pelvis - IV Contrast Only; Complete Time: 01:46 [facility] 07/17 05:52 Order name: CONS Physician Consult [facility] 07/16 23:11 Order name: IV Saline Lock; Complete Time: 23:36 [facility] 07/16 23:11 Order name: Labs collected and sent; Complete Time: 23:36 dr5 Administered Medications: 07/16 23:20 Drug: Ondansetron IVP 4 mg IVP once; over 2 minutes Route: IVP; Site: right forearm; rg5 07/17 03:05 Follow up: Response: No adverse reaction; Pain is decreased rg5 07/16 23:20 Drug: NS 0.9% IV 1000 ml IV at 1000 ml once; to be given as a bolus over 60 minutes rg5 Route: IV; Rate: 1000 ml; Site: right forearm; 07/17 03:05 Follow up: IV Status: Completed infusion; IV Intake: 1000ml rg5 07/16 23:25 Drug: morphine IVP or IV 4 mg IVP once over 4 mins Route: IVP; Infused Over: 4 mins; rg5 Site: right forearm; 07/17 03:06 Follow up: Response: No adverse reaction; Pain is decreased rg5 01:09 Drug: HYDROmorphone IVP 0.5 mg IVP once Route: IVP; Site: right forearm; rg5 03:05 Follow up: Response: No adverse reaction; Pain is decreased rg5 02:41 Drug: GI Cocktail without - (Maalox PO 30 ml, Lidocaine Mucous Membrane 2 % 15 rg5 ml) PO once Route: PO; 03:05 Follow up: Response: No adverse reaction rg5 03:13 Drug: NS 0.9% IV 1000 ml IV at 125 ml/hr once; to be given as a bolus over 60 minutes rg5 Route: IV; Rate: 125 ml/hr; Site: right forearm; 09:30 Follow up: IV Status: Infusion continued upon admission; IV Intake: 800ml kb3 03:13 Drug: Piperacillin-Tazobactam IVPB 3.375 grams IVPB once over 60 mins; (mix in NS 100 rg5 mL) Route: IVPB; Infused Over: 60 mins; Site: right forearm; 04:15 Follow up: IV Status: Completed infusion; IV Intake: 100ml rg5 Disposition Summary: 07/17/24 02:49 Hospitalization Ordered Notes: Hospitalization Status: Inpatient Admission dr5 Provider: Andre Kelly dr5 Condition: Stable dr5 Problem: new dr5 Symptoms: are unchanged dr5 Bed/Room Type: Standard dr5 Location: [facility] ER HOLD(07/17/24 04:37) rv1 Room Assignment: ERHOLD-(07/17/24 04:37) rv1 Diagnosis - Acute cholecystitis dr5 Forms: - Medication Reconciliation Form dr5 - SBAR form dr5 - Leadership Thank You Letter dr5 Addendum: 07/18/2024 13:01 Co-signature as Attending Physician, Yuri Townsend MD I agree with the assessment and c ortiz plan of care. Signatures: Dispatcher [employer] EDYuri Hernandez MD MD cha Ayala, Heidy, RN RN ha1 Sallie Fernandez rv1 Ty Haas RN RN rg5 Junior Crisostomo, HOME LIGHTING ADVISER-C HOME LIGHTING ADVISER-[facility]5 Sherrell Cat RN kb3 Corrections: (The following items were deleted from the chart) 07/17 04:37 02:49 Telemetry/MedSurg (observation) dr5 rv1 04:37 02:49 dr5 rv1
[2024-07-17] MEDS ORDERED: NA CHLORIDE 0.9% 100 ML ONE ×2 (03:10→08:56)
[2024-07-17] MEDS ORDERED: NA CHLORIDE 0.9% 1,000 ML ONE (03:10)
[2024-07-17] MEDS ORDERED: PIPERACIL/TAZO 3.375 GM VIAL IV ONE ×2 (03:10→08:56)
--- NOTE | 2024-07-17 05:46 | P.HP ---
Certification for Inpatient Patient admitted to: Observation With expected LOS: <2 Midnights Practitioner: I am a practitioner with admitting privileges, knowledge of patient current condition, hospital course, and medical plan of care. Services: Services provided to patient in accordance with Admission requirements found in Title 42 Section 412.3 of the Code of Federal Regulations Patient History Date of Service: 07/17/24 Reason for admission: Abdominal pain History of Present Illness: 38 yrs old Male with past medical history of chron's disease with no recent flareup came to ER with intractable abdominal pain and nausea and vomiting. Pain is located right upper quadrant. He also has epigastric pain. Abdominal pain been going on since yesterday afternoon. Patient reports pain got worse after eating 2 tacos at [employer].. No sick contacts . . No fever or chills. Patient was assessed in the ER and had a CT which was consistent with possible early appendicitis and was admitted for further management Allergies ibuprofen Adverse Reaction (Verified 05/05/20 23:41) Nausea/Vomiting Home Medications: NK [No Home Meds] 05/03/20 - Past Medical/Surgical History Has patient received pneumonia vaccine in the past: Yes Diabetic: No Past Medical History: Reviewed- Non-Contributory -: Crohns Past Surgical History: Reviewed- Non-Contributory -: Appendectomy Psychosocial/ Personal History: Pt lives with - Family History Father -: Cancer Notes: colon ca Mother -: Other (see notes) Notes: none - Social History Smoking Status: Never smoker Alcohol use: Yes CD- Drugs: No Caffeine use: No Review of Systems 10-point ROS is otherwise unremarkable Physical Examination - Vital Signs Temperature: 97.8 F Blood Pressure: 136/80 Pulse: 76 Respirations: 80 Pulse Ox (%): 94 - Physical Exam General: Alert, Oriented x3, Mild distress HEENT: Atraumatic, Normocephalic Neck: Supple Respiratory: Clear to auscultation bilaterally, Normal air movement Cardiovascular: Normal pulses, Regular rate/rhythm, Normal S1 S2 Capillary refill: <2 Seconds Gastrointestinal: Non-distended, W/out hepatosplenomegaly, Tenderness Musculoskeletal: No clubbing Integumentary: No rashes Neurological: Normal strength at 5/5 x4 extr, Cranial nerves 3-12 intact, Normal affect Lymphatics: No axilla or inguinal lymphadenopathy - Studies Laboratory Data (last 24 hrs) 07/16/24 07/16/24 23:30 23:30 WBC 10.20 Hgb 15.6 Hct 46.0 Plt Count 320 Sodium 140 Potassium 3.6 BUN 12 Creatinine 1.13 Glucose 103 Total Bilirubin 0.6 AST 17 ALT 29 Alkaline Phosphatase 73 Lipase 46 Assessment and Plan - Plan Acute cholecystitis Pain control Started on antibiotic Will get surgical consult IV fluids Will keep n.p.o. for now CT findings noted Has Cholelithiasis with possible early acute cholecystitis Crohn's disease No recent flareup Monitor closely GI/DVT prophylaxis Advanced directive full code Discharge Plan: Home Plan to discharge in: 48 Hours - Advance Directives Does patient have a Living Will: No Does patient have a Durable POA for Healthcare: No - Code Status/Comfort Care Code Status: Full Code Time Spent Managing Pts Care (In Minutes): 48
[2024-07-17] MEDS ORDERED: ACETAMINOPHEN 325 MG TABLET PO PRN (05:47)
[2024-07-17] MEDS: NA CHLORIDE 0.9% 1,000 ML IV SCH (06:00)
[2024-07-17] MEDS: HYDROMORPHONE HCL 1 MG/ML INJ IV PRN (06:40)
[2024-07-17] MEDS: ONDANSETRON 4 MG/2 ML VIAL IV PRN (06:40)
--- NOTE | 2024-07-17 06:41 | P.PN ---
Date of Service: 07/17/24 Subjective: seen after lap michelle feeling much beetter no new/worseening symptoms ROS: 10 point ROS as noted above, otherwise negative Physical Exam: GEN: Alert, NAD CV: Regular rate and rhythm, no edema Pulm: Nonlabored respirations on room air, clear bilaterally ABD: soft, RUQ tenderness, nondistended Neuro: Normal speech, normal affect Problem List: Acute Cholecystitis Hx of Crohn's Disease Hx of Appendectomy (2019) on admission, presents with intractable nausea/vomiting associated with RUQ/Epigastric abdominal pain. Reports pain worsened after eating. Denies fever/chills. No recent sick contacts. Abdominal u/s (07/16): Minimal cholelithiasis with a positive sonographic Kovacs's sign CT abdomen/pelvis (07/16): Gallstones within a mildly distended and minimally thickened gallbladder Dr. Mejia, general surgeon consulted performe lap michelle 07/17) continue empiric zosyn (07/17-) pain control continue IV fluids Code: Full Dispo: Home Pending surgical recs, possible surgery Time Spent Managing Pts Care (In Minutes): 55
[2024-07-17] MEDS ORDERED: HYDROMORPHONE HCL 1 MG/ML INJ ONE (06:42)
[2024-07-17] MEDS ORDERED: ONDANSETRON 4 MG/2 ML VIAL ONE ×2 (06:42→09:56)
[2024-07-17 06:52] VITALS: BMI 45.1
[2024-07-17] MEDS: FLU (Fluarix Triv) TS24-25(6MOS UP)/PF 45 MCG/0.5 ML Syringe IM ONE (07:45)
[2024-07-17] MEDS: PIPER TAZO 3.375 GM in NA CHLORIDE 0.9% 100 ML IV SCH (09:00)
[2024-07-17] MEDS: Ringers Lactate 1,000 ML IV ONE (09:25)
--- NOTE | 2024-07-17 09:28 | P.CNS ---
Date of Consult: 07/17/24 Reason for consult: Abdominal pain History of present illness: Patient is a 38-year-old male presented to the emergency room with 2-day history of biliary colic. Patient has epigastric and right upper quadrant pain associated with nausea, vomiting, bloating, belching and heartburn. His symptoms are postprandial in nature after eating taco. Patient denies any sore throat, runny nose, cough, headaches, dizziness, chest pain, fever or chills. Review of systems: Otherwise unremarkable Past medical history: Crohn's disease Past surgical history: Laparoscopic appendectomy Allergies: Ibuprofen Social history: Patient denies smoking or drinking alcohol Family history: Noncontributory Vital signs: Stable, afebrile Awake, alert and oriented x 3 Physical exam: Head and neck exam: No icterus, no neck masses, no JVD, throat clear and neck supple Chest: Clear Heart: S1-S2 Abdomen: Soft, nondistended, positive bowel sounds, tenderness in the epigastric and right upper quadrant region with no evidence of peritonitis Extremity: Neurovascular intact Neuro: Nonfocal Diagnostic data: Reviewed, LFTs are within normal limit, lipase is within normal limit. Ultrasound and CT are consistent with cholelithiasis and early acute cholecystitis Assessment: Acute cholecystitis and cholelithiasis Plan/recommendation: Admit, n.p.o., IV fluids, IV antibiotics and to the OR for laparoscopic cholecystectomy possible open. Patient understands risk, benefits and alternatives and agrees to procedure. CC:
[2024-07-17 09:39] LABS: Specific Gravity 1.024 (1.005-1.030); Sqamous Epithelial None Seen /HPF (None Seen); Urine Bacteria None Seen /HPF (<20); Urine Bilirubin NEGATIVE (Negative); Urine Blood Negative (Negative); Urine Clarity Clear (Clear); Urine Color Yellow (Yellow); Urine Culture Reflex Order NOT NEEDED; Urine Glucose NEGATIVE (Negative); Urine Ketones 1+ (Negative); Urine Microscopic Reflex YN ORDER UMIC; Urine Mucus Slight /HPF (None Seen); Urine Nitrite NEGATIVE (Negative); Urine Protein NEGATIVE (Negative); Urine Urobilinogen 1+ (Normal); Urine WBC <5 /HPF (<5); Urine Yeast (Budding) Trace /HPF (None Seen); Urine pH 6.5 (5.0-7.0)
[2024-07-17] MEDS ORDERED: propofoL 200 MG/20 ML VIAL IV ONE (09:56)
[2024-07-17] MEDS ORDERED: dexAMETHasone 10 MG/ML VIAL ONE (09:56)
[2024-07-17] MEDS ORDERED: KETOROLAC 30 MG/ML INJ ONE (09:56)
[2024-07-17] MEDS ORDERED: LIDOCAINE 2% MPF 5 ML VIAL ONE (09:56)
[2024-07-17] MEDS ORDERED: MIDAZOLAM HCL 2 MG/2 ML INJ ONE (09:57)
[2024-07-17] MEDS ORDERED: ROCURONIUM 50 MG/5 ML VIAL IV ONE ×2 (09:57→10:47)
[2024-07-17] MEDS ORDERED: FENTANYL CITR 100 MCG/2 ML ONE ×2 (09:57→11:00)
[2024-07-17] MEDS: BUPIVACAINE 0.5% PF 10 ML VIAL ONE (10:38)
[2024-07-17] MEDS: SUGAMMADEX SODIUM 200 MG/2 ML VIAL IV ONE (10:59)
[2024-07-17] MEDS: MEPERIDINE HCL 25 MG/ML SYR ONE (11:47)
--- NOTE | 2024-07-17 12:08 | P.OP ---
Date of Service: 07/17/24 Preop diagnosis: Acute cholecystitis and cholelithiasis Postop diagnosis: Same with adhesions Procedure performed: Laparoscopic cholecystectomy, lysis of adhesions Surgeon: Raj Mejia MD Kaitara Taraka: Kasey HOOD Estimated blood loss: Minimal Specimen: Gallbladder Findings: As above Anesthesia: General Complications: None Drains: None Fluids and blood products: Nonapplicable Disposition: Recovery room Operative note: Patient brought to the OR and placed in the supine position. General anesthesia began. Patient prepped and draped in usual sterile fashion. Marcaine 0.5% infiltrated locally for postop pain control. 15 blade used to make a 1 cm infraumbilical incision. Subcutaneous tissue divided. Bleeding controlled cautery. Fascia identified and divided. #1 Vicryl stay suture placed. Peritoneal cavity entered with sharp and blunt dissection. Pneumoperitoneum established. Then three 5 mm trocars placed under direct vision. 1 trocar placed in the epigastric region just to the right of midline and 2 trocars placed in the right subcostal region. Patient had a large body habitus that required an additional trocar 5 mm in size for manipulation of the gallbladder. Laparoscopy revealed extensive adhesions to the gallbladder and the gallbladder was distended with thickened wall. The findings were consistent with acute cholecystitis. Ligatures and cautery was utilized as needed to take down all the adhesions. Approximately 10 to 15 minutes was used to take down the adhesions. Bleeding was controlled with cautery. Fundus was retracted superiorly. Infundibulum was identified and retracted inferolaterally. Cystic duct and cystic artery were clearly identified with blunt dissection. Clips were placed and both structures divided. Cautery was used to remove the gallbladder from the liver bed. Bleeding on the liver bed was controlled with cautery. Gallbladder was retrieved via Endo Catch bag through the umbilical wound. Pneumoperitoneum was reestablished. Right upper quadrant was irrigated. There was clear effluent. There was no evidence of bleeding or bile leakage appreciated. All trocars were removed under direct vision. Stay sutures were tied to each other to reapproximate the fascial defect. 1 extra stitch was applied as the fascial incision had to be extended to remove the gallbladder. Subcutaneous wounds irrigated and bleeding controlled cautery. 3-0 chromic used to approximate subcutaneous tissue and sergio used to close skin. Sterile dressing applied. Patient awakened and taken to recovery room in good general condition. CC:
[2024-07-17] MEDS ORDERED: HYDROCODONE/APAP 7.5/325 MG TAB PO PRN (12:28)
[2024-07-17] MEDS ORDERED: HYDROMORPHONE HCL 1 MG/ML INJ IV PRN (12:28)
[2024-07-17] MEDS: NA CHLORIDE 0.9% 1,000 ML ONE (12:33)
[2024-07-18 05:06] LABS: Absolute Lymphocytes (CBC) 0.8 K/uL (0.7-4.9); Absolute Monocytes 0.9 K/uL (0.1-1.3); Absolute Neutrophil 11.2 K/uL (1.8-8.0); Basophils % 0.2 % (0-1.3); Hematocrit 41.6 % (39.6-49.0); Hemoglobin 13.6 g/dL (13.6-17.9); Lymphocytes % 6.3 % (15.3-44.8); MCH 28.1 pg (27.0-35.0); MCHC 32.7 g/dL (32.0-36.0); MCV 85.8 fL (80-100); MPV 8.1 fL (7.6-11.3); Monocytes % 6.9 % (3.3-12.3); Neutrophils % 86.6 % (41.7-73.7); Platelets 289 thou/uL (152-406); RBC Red Blood Cell Count 4.86 M/uL (4.33-5.43); Red Cell Distribution Width 14.7 % (12.1-15.2)
[2024-07-18 05:12] VITALS: BP 137/58; TEMP 97.6
[2024-07-18 06:06] LABS: Anion Gap 11.9 mEq/L (5.0-15.0); Potassium 3.9 mEq/L (3.5-5.1)
[2024-07-18] MEDS: POTASSIUM CL SA 10 MEQ TAB PO ONE (08:31)
[2024-07-18 08:42] LABS: Blood Morphology Comment NOT SEEN (NOT SEEN); Platelet Estimate ADEQ; White Blood Cell Scan OK (OK)
--- NOTE | 2024-07-18 08:56 | P.DS ---
Admission Date: 07/17/24 Discharge Date: 07/18/24 Disposition: ROUTINE DISCHARGE Discharge Condition: GOOD Reason for Admission: Abdominal pain Consultations: General surgery - Dr. Mejia Brief History of Present Illness: 38yo M, PMH: chron's disease with no recent flareup Patient came to ER with intractable abdominal pain and nausea and vomiting. Pain is located right upper quadrant. He also has epigastric pain. Abdominal pain been going on since yesterday afternoon. Patient reports pain got worse after eating 2 tacos at [employer] No sick contacts . . No fever or chills. Patient was assessed in the ER and had a CT which was consistent with possible early appendicitis and was admitted for further management Hospital Course: Problem List: Acute Cholecystitis, now s/p lap cholecystectomy (07/17) Hx of Crohn's Disease Hx of Appendectomy (2019) Physician discharge instructions: Patient presented with intractable nausea/vomiting associated with RUQ/Epigastric abdominal pain secondary to Acute cholecystitis. Abdominal ultrasound noted minimal cholelithiasis with a positive sonographic Kovacs's sign. CT abdomen/pelvis noted gallstones within a mildly distended and minimally thickened gallbladder. Patient was evaluated by Dr. Mejia, general surgeon, and underwent Laparoscopic cholecystectomy with lysis of adhesions on 07/17. Patient did well post-operatively, feeling better, abdominal pain improved, nausea/vomiting resolved, and was deemed stable for discharge. Patient ambulating and passing gas on day of discharge without issues. Continue soft diet for next 2-3 days. Can slowly ease back into regular diet over the next week. Avoid fatty/greasy foods. Recommend following up with Dr. Mejia in office in ~1 week Patient is to complete 1 week of Augmentin on discharge. Medications: Augmentin x1 week norco 5/325 as needed for pain Follow up: PCP 3-[address] Mejia in office in ~1 week Please call to schedule / confirm appointments Okay to return to work once cleared by Dr. Mejia at follow up appointment No heavy lifting > 10 lbs for 4-6 weeks or otherwise instructed by Dr. Roberto Conn to shower with running water. Do not submerge wound underwater. Follow up with Dr. Mejia in office in ~1 week. Physical Exam: GEN: Alert, NAD CV: Regular rate and rhythm, no edema Pulm: Nonlabored respirations on room air, clear bilaterally ABD: soft, nontender; RUQ with dressing in place, nondistended Neuro: Normal speech, normal affect Vital Signs/Physical Exam: Temp Pulse Resp BP Pulse Ox 97.6 F 82 18 137/58 L 95 07/18/24 04:00 07/18/24 04:00 07/18/24 04:00 07/18/24 04:00 07/18/24 04:00 Laboratory Data at Discharge: WBC 12.90 thou/uL (4.3-10.9) H 07/18/24 04:55 Hgb 13.6 g/dL (13.6-17.9) 07/18/24 04:55 Hct 41.6 % (39.6-49.0) 07/18/24 04:55 Plt Count 289 thou/uL (152-406) 07/18/24 04:55 Sodium 139 mEq/L (136-145) 07/18/24 04:55 Potassium 3.9 mEq/L (3.5-5.1) 07/18/24 04:55 BUN 11 mg/dL (7-18) 07/18/24 04:55 Creatinine 1.05 mg/dL (0.70-1.30) 07/18/24 04:55 Glucose 102 mg/dL (74-106) 07/18/24 04:55 Total Bilirubin 0.6 mg/dL (0.2-1.0) 07/16/24 23:30 AST 17 U/L (15-37) 07/16/24 23:30 ALT 29 U/L (16-61) 07/16/24 23:30 Alkaline Phosphatase 73 U/L (45-117) 07/16/24 23:30 Lipase 46 U/L (13-75) 07/16/24 23:30 Home Medications: Amox/Clavulanate [Augmentin 875-125 Tab] 1 tab PO BID 7 Days #14 tab 07/18/24 Hydrocodone 5/APAP 325 [Atka 5/325] 1 tab PO Q8H PRN #10 tab 07/18/24 New Medications: Amox/Clavulanate [Augmentin 875-125 Tab] 1 tab PO BID 7 Days #14 tab Hydrocodone 5/APAP 325 [[place] 5/325] 1 tab PO Q8H PRN #10 tab PRN Reason: Pain Physician Discharge Instructions: Physician discharge instructions: Patient presented with intractable nausea/vomiting associated with RUQ/Epigastric abdominal pain secondary to Acute cholecystitis. Abdominal ultrasound noted minimal cholelithiasis with a positive sonographic Kovacs's sign. CT abdomen/pelvis noted gallstones within a mildly distended and minimally thickened gallbladder. Patient was evaluated by Dr. Mejia, general surgeon, and underwent Laparoscopic cholecystectomy with lysis of adhesions on 07/17. Patient did well post-operatively, feeling better, abdominal pain improved, nausea/vomiting resolved, and was deemed stable for discharge. Patient ambulating and passing gas on day of discharge without issues. Continue soft diet for next 2-3 days. Can slowly ease back into regular diet over the next week. Avoid fatty/greasy foods. Recommend following up with Dr. Mejia in office in ~1 week Patient is to complete 1 week of Augmentin on discharge. Medications: Augmentin x1 week norco 5/325 as needed for pain Follow up: PCP 3-[address] Mejia in office in ~1 week Please call to schedule / confirm appointments Okay to return to work once cleared by Dr. Mejia at follow up appointment No heavy lifting > 10 lbs for 4-6 weeks or otherwise instructed by Dr. Roberto Conn to shower with running water. Do not submerge wound underwater. Follow up with Dr. Mejia in office in ~1 week. Followup: NONE,NONE [Primary Care Provider] - Raj Mejia MD [ACTIVE - CAN ADMIT] - 1 Week Time spent managing pt's care (in minutes): 45
[2024-07-18 10:10] VITALS: O2SAT 96
== END 2024-07-18 09:22 | disposition home or self-care (01) ==
LOC: ER 22:38 → ERHOLD 07-17 05:46 → 4TH 07-17 11:17 → 2ND 07-17 11:21
PROVIDERS: ADMIT Family Medicine; ATTEND Hospitalist
PROC: 0DNW4ZZ Release Peritoneum, Percutaneous Endoscopic Approach (ICD-10-PCS; 2024-07-17)
PROC: 0FT44ZZ Resection of Gallbladder, Percutaneous Endoscopic Approach (ICD-10-PCS; principal; 2024-07-17 11:00)
DX: K80.00 Calculus of gallbladder with acute cholecystitis without obstruction (principal); R10.9 Unspecified abdominal pain; R11.2 Nausea with vomiting, unspecified; K50.90 Crohn's disease, unspecified, without complications
CPT/HCPCS: 96365; 96361; 85025 ×2; 81001; 80048; 36415 ×2; 88304; 83690; 80053; 74177; 76705; 94010; 96375; 99285; 47562; 47579; Q9967; J2704; J2543 ×5; J2003; J2250; J3010 ×2; J1100; J2175; J1171 ×2; J2405 ×3; J7120; J7030 ×4; A4314; G0378